=== PATIENT | male | born 1960 | race Caucasian/White ===

== ENCOUNTER → 2017-08-07 16:48 | Outpatient (CLI) | payer OTHER, SELFPAY ==
--- NOTE | 2017-08-07 16:55 | RAD_ITS ---
STUDY: X-RAY CHEST REASON FOR EXAM: Male, 57 years old. Pre-op TECHNIQUE: Frontal and lateral views of the chest. COMPARISON: 09/05/2016. FINDINGS: There is hyperinflation of the lungs consistent with chronic obstructive lung disease (COPD). No infiltrates or effusions. There is no demonstrated pleural abnormality. Normal size heart. Normal mediastinum and chandler. Normal visualized pulmonary arteries. Normal visualized aortic arch and descending thoracic aorta. There are diffuse degenerative changes of the visualized thoracic spine. Normal visualized ribs, clavicles, and shoulders. There is no demonstrated abnormality of the visualized soft tissue structures of the upper abdomen. RAD/Chest PA and Lateral IMPRESSION: There are findings consistent with COPD. There is no evidence of acute chest disease. Electronically Signed: Raza Huerta MD at 19:43 EDT , Service support ,
--- NOTE | 2017-08-07 17:14 | EKG12_ITS ---
Test Reason : PRE-OP Blood Pressure : / mmHG Vent. Rate : 058 BPM Atrial Rate : 058 BPM P-R Int : 146 ms QRS Dur : 102 ms QT Int : 418 ms P-R-T Axes : 051 057 075 degrees QTc Int : 410 ms Sinus bradycardia Otherwise normal ECG Confirmed by JOHANNY CONWAY, ANUP ([id number]), communications editor DORCAS MEHTA ([id number]) on 08/10/2017 1:17:58 PM Referred By: Duy Mehta Confirmed By:ANUP ORLANDO MD
== END ==
PROVIDERS: Family Provider Internal Medicine; PCP Internal Medicine; Visit Provider Orthopaedic Surgery
DX: Z01.810 Encounter for preprocedural cardiovascular examination (principal); Z01.811 Encounter for preprocedural respiratory examination
CPT/HCPCS: 71046; 93005

== ENCOUNTER → 2017-08-24 17:22 | Outpatient (CLI) | payer OTHER, SELFPAY ==
--- NOTE | 2017-08-24 17:27 | CT_ITS ---
STUDY: CT SCAN LOWER EXTREMITY LEFT REASON FOR EXAM: Male, 57 years old. Osteoarthritis of the left knee. Conformis protocol. RADIATION DOSAGE (If Supplied By Facility): CTDIvol = ( 19.20 ) mGy, DLP = ( 886.87 ) mGycm. Individualized dose optimization techniques were used for this CT.? TECHNIQUE: Multiple axial tomographic images of the left hip joint, left knee joint and left ankle joint were obtained. Coronal and sagittal reconstruction was performed. COMPARISON: None. FINDINGS: Left hip joint: There is evidence of prior nailing of the left femoral neck. No significant osteoarthritis is seen. Left knee: Medial compartment: The medial femoral condyle shows a mild degree of degenerative spurring. Moderate degree of posterior medial femoral condyle spurring. There is a mild degree of joint space narrowing. Mild degree of spur formation along the medial tibial plateau. Lateral compartment: Moderate-sized degenerative spurring along the lateral femoral condyle. Moderate moderate degree of degenerative spurring along the lateral tibial plateau with subchondral sclerosis and small cyst formation. Degree of posterior lateral condyle degenerative spurring. Mild degree of joint space narrowing. Patellofemoral joint: Moderate degree of joint space narrowing. Marked degree of degenerative spurring along the anterior portion of the distal femur as well as degenerative spurring along the posterior aspect of the superior and inferior aspects of the patella. Small joint effusion. Left ankle: No significant abnormality is seen. CT/Extremity Lower without Contra IMPRESSION: Multiple findings as described above. Electronically Signed: Nazario Villanueva MD at 13:22 EDT Tel [phone], Service support ,
== END ==
PROVIDERS: Family Provider Internal Medicine; PCP Internal Medicine; Visit Provider Orthopaedic Surgery
DX: M17.12 Unilateral primary osteoarthritis, left knee (principal); M25.562 Pain in left knee
CPT/HCPCS: 73700

== ENCOUNTER 2020-09-13 09:07 | Emergency (ER) | payer OTHER, SELFPAY ==
[2020-09-13 09:08] VITALS: BP 128/77; PULSE 58; RESP 16; TEMP 36.4; O2SAT 98; BMI 23.7
--- NOTE | 2020-09-13 09:43 | EDS_ITS ---
HPI History of Present Illness Chief Complaint: Upper Extremity Injury PFSH PFSH Home Medications hydrocodone-acetaminophen 1 tab PO Q6H PRN PRN 3 Days #12 tablet 09/13/20 [Rx Last Taken Unknown] Allergy/AdvReac Type Severity Reaction Status Date / Time No Known Allergies Allergy Verified 09/13/20 09:10 Social History Smoking Status: Never smoker ROS ROS ED Constitutional Constitutional ED: Denies chills, fever(s) or sweats Eyes Eyes: Denies blurry vision or change in vision ENT ENT ED: Denies ear pain, rhinorrhea or sore throat Cardiovascular Cardiovascular: Denies chest pain, palpitations or racing heartbeat Respiratory/Chest Respiratory/Chest: Denies cough, dyspnea or sputum Gastrointestinal Gastrointestinal: Denies abdominal pain, constipation, diarrhea or vomiting Genitourinary Genitourinary ED: Denies dysuria, hematuria or urinary frequency Musculoskeletal Musculoskeletal: Denies arthralgias, myalgias or neck pain Integumentary Denies abscess, Abrasions or rash Neurologic Neurologic: Reports paresthesias and other Details: Intermittent left hand numbness and tingling. Worse with laying flat on his back. ; Denies headache(s) or weakness Psychiatric Psychiatric: Denies anxiety, depression, suicidal ideation or suicidal thoughts Endocrine Endocrinology: Denies polydipsia or polyuria EXAM Physical Exam Const Vital Signs: 09/13/20 09:08 Temperature 97.6 F L Temperature Source Temporal Pulse Rate 58 L Respiratory Rate 16 Blood Pressure 128/77 H Blood Pressure Mean 94 Pulse Ox 98 Oxygen Delivery Method Room Air General Appearance ED: Negative for pallor HEENT Reports normocephalic, head/scalp atraumatic and moist mucous membranes Eyes PERRL and EOMs intact bilaterally Neck full ROM, no lymphadenopathy and supple General: Negative for tenderness Chest Wall inspection of chest normal and palpation of chest normal Resp normal respiratory effort and clear to auscultation bilaterally Auscultation: Negative for rales, rhonchi or wheezes Cardio regular rate and regular rhythm GI normal to inspection, nondistended, normoactive bowel sounds and non-distended Auscultation: normoactive bowel sounds Palpation: soft Narrative: Deferred Back/Spine no CVA tenderness General Back: Negative for CVA tenderness Cervical Spine: Negative for cervical spine tenderness Extremity normal to inspection General Extremety ED: Yes edema and tenderness General Extremity: edema Right Upper Extremity: shoulder joint Shoulder Joint Exam - Right: inspection (Normal), palpation (No tenderness to palpation) and ROM (Full range of motion in flexion, extension, abduction, abduction) Left Upper Extremity: hand and digits hand special tests (Left hand is full range of motion. No tenderness to palpation. Negative Tinel sign. Negative Otilia test. Normal Reynaldo's test. Brisk cap refill to all 5 fingers on the left hand.) Neuro oriented x3 and CN's II-XII intact bilaterally Neuro Narrative: Mild diffuse subjective decreased sensation on the left hand. Sensorium / Orientation: alert Motor Exam: strength 5/5 throughout Psych mental status grossly normal Attitude: No agitated Skin no rashes or lesions noted and no wounds General Skin Exam: Negative for jaundice or pallor Lesions: no lesions Rashes: no rashes Trauma: Negative for abrasion or laceration MDM MDM MDM Narrative Medical decision making narrative: Patient presenting with positional pain in the left wrist and hand. He states this has been going on for a couple of days. He states that when he lies on his back he gets numbness and tingling in his left hand. He denies any neck or upper arm pain. Patient's examination shows a negative Tinel's sign and a negative Otilia's test. I am unable to reproduce his pain. His Reynaldo's test is normal. He has brisk cap refill to all 5 fingers on the left hand. 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 I did discuss the patient with his PCP who did agree. Patient will be placed on a burst of prednisone for a few days. He is to follow-up with his PCP to ensure resolution. If he has any new or worsening symptoms of concern he is to return to the ER. I do not believe he is having any kind of stroke or TIA. He has no risk factors for this. Lab Data Attestation: I reviewed the patient's lab results. Discharge Plan Triage Chief Complaint: Upper Extremity Injury ED Provider: Alex Mishra Dx/Rx/DC Orders Instructions: Hand and Wrist Exercises: Wrist Flexion Prescriptions: New hydrocodone-acetaminophen 5-325 mg tablet 1 tab PO Q6H PRN PRN (Reason: Pain) 3 Days Qty: 12 RF: 0 Primary Care Provider: Curtis Orta Referrals: Curtis Orta MD [Primary Care Provider] - Disposition Disposition: Home, self care
[2020-09-13] MEDS: predniSONE 20 MG Tablet 60 MG PO (11:51)
[2020-09-13] MEDS: HYDROcodone Bitartrate/Apap 5/325 Tablet PO (11:51)
[2020-09-13 11:54] VITALS: RESP 16
== END 2020-09-13 11:55 | disposition home or self-care (01) ==
PROVIDERS: Emergency Provider Student in an Organized Health Care Education/Training Program; PCP Internal Medicine
DX: S49.92XA Unspecified injury of left shoulder and upper arm, initial encounter (principal); R20.2 Paresthesia of skin; R20.0 Anesthesia of skin; X58.XXXA Exposure to other specified factors, initial encounter; Y93.9 Activity, unspecified; Y92.9 Unspecified place or not applicable; Y99.9 Unspecified external cause status
CPT/HCPCS: 99283

== ENCOUNTER → 2021-11-15 | Outpatient (CLI) | payer OTHER, SELFPAY ==
--- NOTE | 2021-11-15 16:05 | CT_ITS ---
STUDY: CT LEFT SHOULDER REASON FOR EXAM: Male, 61 years old. History: OSTEOARTHRITIS History: OSTEOARTHRITIS RADIATION DOSAGE (If Supplied By Facility): CTDIvol = ( 23.74 ) mGy, DLP = ( 536.64 ) mGycm TECHNIQUE: The patient was scanned in a multi detector CT scanner. High resolution transaxial imaging was performed without the administration of intravenous contrast material. Sagittal and coronal images were reconstructed. Individualized dose optimization techniques were used for this CT. COMPARISON: None. FINDINGS: Normal glenohumeral articulation. Normal glenoid rim, neck and visualized scapula. Normal humeral head, neck and tuberosities. Normal coracoid process. Normal visualized lateral clavicle. Normal acromioclavicular articulation. There is a Type II morphology (curved), with a neutral orientation. Normal visualized muscles and soft tissue structures. CT/Extremity Upper without Contra IMPRESSION: There are no acute findings. Electronically Signed: Denny Wilcox MD at 18:41 EDT ,
== END | disposition home or self-care (01) ==
PROVIDERS: PCP Internal Medicine; Referring Provider Student in an Organized Health Care Education/Training Program; Visit Provider Student in an Organized Health Care Education/Training Program
DX: M19.012 Primary osteoarthritis, left shoulder (principal); M19.032 Primary osteoarthritis, left wrist
CPT/HCPCS: 73200

== ENCOUNTER 2021-12-12 07:30 | Day surgery (SDC) | payer OTHER, SELFPAY ==
[2021-11-30 09:48] LABS: Anion Gap 6 (5-15); BUN 18 mg/dL (7-18); Calcium,Total 8.8 mg/dL (8.5-10.1); Chloride 109 mmol/L (98-107); Creatinine, Serum 1.06 mg/dL (0.70-1.30); EST Glomerular Filtration Rate 75 mL/min (>60); Est Glom Filt Rate - Afr Amer 91 mL/min (>60); Glucose 121 mg/dL (74-106); Potassium 3.7 mmol/L (3.5-5.1); Sodium Level 140 mmol/L (136-145)
[2021-11-30 09:56] LABS: Absolute Lymphocyte Count 1.21 X10^3/uL (0.83-4.51); Absolute Neutrophil Count 3.3 X10^3/uL (2.0-7.7); Basophil# 0.03 X10^3/uL; Basophil% 0.6 % (0-1); Eosinophil# 0.13 X10^3/uL; Eosinophils% 2.5 % (0-5); Hematocrit 40.4 % (40-54); Hemoglobin 13.6 g/dL (13.0-16.5); Lymphocyte # 1.21 X10^3/ul (0.83-4.51); Mean Corp Hgb Conc 33.7 g/dL (32-36); Mean Corpuscular Hgb 30.8 pg (27.0-32.0); Mean Corpuscular Volume 91.6 fL (80-94); Mean Platelet Vol. 8.9 fl (6.2-12.0); Monocyte# 0.56 X10^3/uL; Monocyte% 10.6 % (0-10); NRBC Flagged by Analyzer 0 % (0-5); Neutrophil # 3.31 X10^3/uL (2.7-7.7); Neutrophil % 62.7 % (47-70); Platelet Count 392 K/mm3 (150-450); RBC Distribution Width CV 12.8 % (11.6-14.6); Red Blood Count 4.41 M/mm3 (4.6-6.2); White Blood Count 5.3 K/mm3 (4.4-11.0)
[2021-11-30 10:01] LABS: Magnesium 2.1 mg/dL (1.6-2.6)
[2021-12-12] VITALS (7 sets, daily range): BP systolic 111–130; BP diastolic 67–95; PULSE 53–68; RESP 16–18; TEMP 36.1–36.6; O2SAT 98–100; BMI 23.6
[2021-12-12] MEDS: Lactated Ringers 1,000 ML 999 ML IV ×2 (08:25→13:45)
[2021-12-12] MEDS: Gabapentin 600 MG Tablet PO (08:37)
[2021-12-12] MEDS: Acetaminophen 500 MG Tablet 1000 MG PO ×2 (08:37→14:55)
[2021-12-12] MEDS: Celecoxib 200 MG Capsule 400 MG PO (08:38)
[2021-12-12 09:20] LABS: Bedside Glucose 94 mg/dL (74-106)
[2021-12-12] MEDS: Lactated Ringers 1,000 ML 75 ML IV (09:35)
--- NOTE | 2021-12-12 10:00 | SHO_PTH ---
PATIENT: TANVIR DELUCA LOC: [facility] [place] U#:[id number] AGE/SX: 61/M ROOM: RE12/12/[address]: Dr. Chase Lyn DO : 1960 BED: DIS: 12/12/2021 SPEC #: [id number] RECD: 12/12/21 14:54 STATUS: NOEL REQ #: [id number] JANICE: 12/12/21 10:[address]: Chase Lyn DEPT: SURGICAL PATHOLOGY RECD BY: Bree Jaime ENTERED: 12/13/21 08:25 SP TYPE: HUMERUS OTHR DR: Dr. Curtis Orta MD Tissues: Humerus, NOS Procedures: Decalcification bone/plaque Surgery Specimen Level IV HEADER OPERATION: ERAS, total shoulder replacement, reverse PRE-OP DIAGNOSIS: Osteoarthritis, tear of rotator cuff TISSUE SUBMITTED: Left humeral head MICROSCOPIC DIAGNOSIS Left humeral head, total shoulder replacement/resection: Focal minimal changes suggestive of osteoarthritis. SJ:nadira 12/18/2021 COMMENT Case has been reviewed in consultation with Dr. Eddy who concurs with the above diagnosis. IDC:AM MICROSCOPIC DESCRIPTION Slides are reviewed. GROSS DESCRIPTION Received in fixative is one container labeled with the patient's name and designated left humeral. The specimen consists of a discoid fragment of gamble bone measuring 5.2 x 4 x 2.2 cm. The articular surface displays an irregular area of cartilage disruption measuring 3.5 x 3 cm. Distinct erosion deep to bone surface is not identified. Hogshead Liner sections are submitted in one cassette after decalcification. / AM:nadira 12/15/2021 TC:5 CPT: 05113, 20192
[2021-12-12] MEDS: Cefazolin 2 GM in 0.9% Normal Saline 100 ML IV (10:54)
[2021-12-12] MEDS: TXA 1000mg in NS100 100ml (IVPB at Incision) 660 MG IV (11:09)
[2021-12-12] MEDS: TXA 1000mg in NS100 100ml (IVPB at Closure) 660 MG IV (13:05)
--- NOTE | 2021-12-12 13:52 | RAD_ITS ---
INDICATION: post op -- AP and Lateral X-Ray of operative shoulder in PACU EXAMINATION/TECHNIQUE: X-RAY - LEFT XR Shoulder Min 2 Views 2 VIEWS COMPARISON: 08/07/2017. FINDINGS: Unremarkable left shoulder prosthesis. No abnormal density visualized in the soft tissues. Soft tissue prominence visualized and is visualized overlying the shoulder consistent with postoperative changes. No evidence of cortical irregularity or lucency to suggest a fracture. No evidence of lytic or sclerotic bone lesion is seen. RAD/Shoulder min 2 Views IMPRESSION: Unremarkable alignment of the left shoulder prosthesis. Electronically Signed: Juan C Marinelli MD at 14:17 EDT ,
[2021-12-12] MEDS: Lactated Ringers 1,000 ML 125 ML IV (15:21)
--- NOTE | 2021-12-12 18:44 | PCM.OPRPT ---
Report of Operation Date of Procedure: 12/12/21 Description of Surgical Findings:: Preoperative diagnosis: Left shoulder rotator cuff arthropathy Postoperative diagnosis: Left shoulder rotator cuff arthropathy Procedure: Left reverse total shoulder arthroplasty Surgeon: Chase Lyn DO It Support Specialist: Daisy Valentine PA-C Anesthesia: General endotracheal Anesthesiologist: Dr. Mejia Complications: None apparent Drains: None Estimated blood loss: 175 cc Urinary output: None recorded IV fluids: 1300 cc crystalloid Specimens: None Surgical implants: Tornier Aequalis PerFORM+ reversed std baseplate 29 mm diameter, standard glenosphere cobalt chrome 39 mm diameter, flex shoulder system reverse tray eccentric high thickness +0 mm, standard PTC humeral stem Aequalis Ascend Flex 132.5 degree angle size 4B, reverse insert thickness +6 mm ultrahigh molecular weight polyethylene. 35 mm central screw. Peripheral screws 34 mm x 2. Surgical indications: This is a 61-year-old male with left shoulder pain and weakness with overhead motion. He did have worsening symptoms over the last several months. X-rays revealed rotator cuff significant superior escape with pseudoparalysis of the left upper extremity due to massive rotator cuff tear as seen on MRI. He had significant retraction and fatty infiltration of his rotator cuff. I discussed surgical options including subacromial balloon, superior capsular reconstruction, and reverse shoulder arthroplasty as options for his massive rotator cuff tear with fatty infiltration. We discussed the risk, benefits, alternatives to all the procedures in the office. He was to undergo a single surgery and settled upon a left reverse shoulder arthroplasty after weighing his options. We obtained a preoperative CT scan for planning. The risks, benefits, alternatives the procedure was reviewed with the patient and he agreed to proceed. Risks included but were not limited to bleeding, infection, instability, loss of life or limb, risk of anesthesia, neurovascular injury, persistent pain, stiffness, prolonged immobilization, need for additional surgery, loosening of orthopedic hardware. He expressed understanding and wished to proceed with surgery. Surgical details: Patient arrived to [facility] morning of the procedure and was greeted by the same day surgery staff. Prior to his procedure, I greeted the patient in the preoperative holding area I identified the patient by name, record number, and date of . Informed consent was confirmed. The operative extremity was marked. All questions were answered to patient satisfaction. Patient was also seen by anesthesia staff. Interscalene block was administered prior to procedure for postoperative analgesia. At time of his procedure, patient was brought to the operative suite and positioned supine on a standard table with a beachchair attachment. General anesthesia was induced after all bony prominences were well-padded. Endotracheal tube was placed. After adequate anesthesia and securing the tube, we prepared the patient to be positioned in the beachchair position. A well-padded head correction officer was applied. The nonoperative extremity was placed in a well arm moreira. He was then brought into the beachchair position after we confirmed an appropriate blood pressure. We then spun the bed 45 degrees. The operative extremity was then prepared. Then the butterfly wing of the bed was removed and a well-padded torso strap was applied to secure the patient to the bed. The operative extremity was now free. We then prepped and draped the left upper extremity in normal, sterile orthopedic fashion. We then performed a timeout with all parties in attendance in agreement with the side, site, and operation be performed. 2 g Ancef was administered prior to incision by anesthesia staff, as well as 1 g TXA IV. No concerns were voiced and we elected to proceed. I first marked a standard deltopectoral incision just lateral to the coracoid process in line with the long axis of the humerus. Skin was sharply incised with 10 blade scalpel. I then dissected bluntly through the subcutaneous layers and found the fat stripe between the deltoid and pectoralis major. The cephalic vein was then identified and protected. It was retracted laterally with the deltoid. I then bluntly dissected underneath the deltoid with a Garrido elevator. Cara retractor was placed. The upper 1 cm of the pectoralis major was released. I then identified the long head of the biceps tendon in the intertubercular groove. This was tenodesed in situ with #2 FiberWire. I then amputated the biceps proximal to the tenodesis site and followed the tendon to the supraglenoid tubercle where it was amputated. This identified the lesser and greater tuberosities. The supraspinatus was completely torn and retracted with an exposed greater tuberosity. I then performed a subscapularis peel while rotating the humerus externally. I tagged the subscapularis for possible repair later with a tagging suture. I then made a anatomic neck cut of the cartilaginous surface of the humeral head. I placed a canal finding reamer at the superior apex of the humeral head. I then sequentially broached to a size 4 broach with excellent rotational control. I placed a humeral protector plate and subluxed the humeral head posteriorly. I then placed retractors around the posterior and anterior glenoid to expose the glenoid. Glenoid labrum was removed with Bovie cautery protecting the axillary nerve, which was in close proximity to the glenoid neck. We then used the custom guide from [employer] to position our centering pin. Guide was removed and pin was analyzed and compared to preoperative planning. It appeared to be in appropriate position. This was reamed about 2 mm deep. We then remove the reamer and used the cannulated drill for the central 35 mm screw. Pin was removed. Post and baseplate was assembled on the back table. We then inserted the baseplate and central screw the assembled baseplate to an appropriate depth. A [place] was used to confirm depth. Cortical screws then were placed in the most superior and inferior holes with good purchase. The baseplate had excellent purchase and the entire scapula would rotate with rotation of the baseplate. We then impacted the 39 mm glenosphere with a standard eccentricity. Locking screw was then placed in the centering hole of the glenosphere with excellent purchase. We then removed retractors and turned our attention back to the humerus. I placed a standard +0 tray and 6 mm polyethylene insert. I then reduced the shoulder. There was excellent range of motion and stability in all planes of motion. We selected this as our final size. We removed trials from the humerus after final dislocation. I copiously irrigated the canal. Broach was placed on hand and then impacted to an appropriate depth. Final +6 mm polyethylene insert was placed. Final reduction was then performed. I then copiously irrigated the wound with irrisept and normal saline solution. Hemostasis was excellent. The axillary nerve was visualized and appeared to be intact. The subscapularis was then identified with a tagging suture. Repair would have been likely under undue tension and likely failed. I elected to not perform a subscapularis repair. We then copiously irrigated the wound with normal saline solution. We reapproximated the interval with 0 Vicryl suture. Subcutaneous layers were reapproximated with 2 -0 Vicryl suture. Skin was finally running V-Loc 3-0 Monocryl suture and Dermabond. A sterile silver Mepilex dressing was applied. Patient was then placed in a simple sling. Patient tolerated procedure well without complication. He was positioned back in the supine position extubated in the operative suite. He was transferred to the rsummit and subsequently to PACU in stable condition. Need for skilled reference library assistant: Daisy Valentine PA-C was critical to the outcome of the case. During the course of the procedure the physician reference library assistant played a vital role. Her intimate knowledge of my steps in the procedure aided in safe and expedient completion of the procedure. The PA played a vital role in positioning particularly in obtaining the appropriate positioning. The PA was also vital in the retraction of soft tissues during the exposure and protecting vital structures. The PA was also vital and protecting soft tissues during times of bony cuts. She also played a vital role in closure with my direct supervision. The PA was also important during reduction and dislocation of the joint and trials intraoperatively. Intraoperative medications: 2 g Ancef IV, 1 g TXA IV x2 Post Operative Plan: Weightbearing: Nonweightbearing left upper extremity, okay for pendulums. Range of motion of wrist elbow and hand as tolerated. Antibiotics: 2 g Ancef IV prior to incision DVT Prophylaxis: Aspirin 81 mg twice daily starting tomorrow Mancini: None Dressing: Maintain silver dressing x5 days. Okay to shower dressing on started on day 4 X-Rays: 2 weeks postop in the office Pain Medication: Oxycodone Rx provided in the office at time of preop visit Follow-up: 2 weeks post-operatively with me in the office
== END 2021-12-12 15:52 | disposition home or self-care (01) ==
LOC: SDC 07:33 → AC 07:33
PROVIDERS: Anesthesiology; PCP Internal Medicine; Referring Provider Student in an Organized Health Care Education/Training Program; Visit Provider Student in an Organized Health Care Education/Training Program
PROC: (CPT 23472; principal; 2021-12-12 09:30)
DX: M75.102 Unspecified rotator cuff tear or rupture of left shoulder, not specified as traumatic (principal); E11.9 Type 2 diabetes mellitus without complications; I10 Essential (primary) hypertension; I25.10 Atherosclerotic heart disease of native coronary artery without angina pectoris; M19.90 Unspecified osteoarthritis, unspecified site; Z79.82 Long term (current) use of aspirin; Z79.52 Long term (current) use of systemic steroids; Z79.899 Other long term (current) drug therapy; Z87.891 Personal history of nicotine dependence; Z95.5 Presence of coronary angioplasty implant and graft
CPT/HCPCS: 23472; 64415; 01638; 36415; 73030; 80048; 82962; 83735; 85025; 87081; 88305; 88311; C1776; J7120; J2405; J3475

== ENCOUNTER 2022-03-24 15:16 | Emergency (ER) | payer OTHER, SELFPAY ==
[2022-03-24] VITALS (8 sets, daily range): BP systolic 110–149; BP diastolic 46–80; PULSE 65–110; RESP 14–25; TEMP 36.8; O2SAT 95–100; BMI 23.1
--- NOTE | 2022-03-24 15:46 | EX.ED.GENINJ ---
HPI History of Present Illness Chief Complaint: Disclocation Narrative Narrative: Patient presents with left shoulder pain, he had a shoulder replacement, he dislocated it 2 days ago. Reduction was attempted by orthopedics outpatient. PFSH PFSH Medical History Arthritis Back pain Former smoker History of diverticulitis Hoarseness Hx of developmental dysplasia of the hip Leg cramps Wears glasses Home Medications acetaminophen 325 mg tablet (Tylenol) 650 mg PO Q4H PRN Pain 11/28/21 [History Last Taken Unknown] oxycodone 5 mg tablet 5 mg PO Q6H PRN pain 7 days #28 tabs 03/24/22 [Rx Last Taken Unknown] tramadol 50 mg tablet 50 mg PO QHS 03/24/22 [History Last Taken Unknown] Allergy/AdvReac Type Severity Reaction Status Date / Time No Known Allergies Allergy Verified 03/24/22 15:20 Surgical History Hx of colonoscopy Hx of total knee arthroplasty Social History Smoking Status: Former smoker ROS ROS ED ROS Narrative Past medical history: Noncontributory Medications: Reviewed Social history: Noncontributory Review of systems: Musculoskeletal: Left shoulder pain Skin: No abrasions or lacerations Neurological: No weakness or paresthesias Hematologic: No easy bleeding or easy bruising EXAM Physical Exam Narrative Exam Narrative: Physical exam General: Patient appears uncomfortable Head: Normocephalic, Atraumatic Neck: No C-spine tenderness Cardiovascular: Normal distal pulses Back: Nontender, Normal Inspection. Extremities: Inferior deformity of the left shoulder neurovascularly intact distally Skin: No abrasions, no lacerations Neurological: Normal strength and sensation Const Vital Signs: 03/24/22 15:17 03/24/22 16:59 03/24/22 17:01 Temperature 98.2 F 98.2 F Temperature Source Temporal Pulse Rate 110 H 72 Pulse Rate [1 (Initial Baseline)] 85 Pulse Rate [2] 75 Pulse Rate [3] 70 Pulse Rate [4] 71 Pulse Rate [5] 68 Respiratory Rate 18 24 H Respiratory Rate [1 (Initial Baseline)] 24 H Respiratory Rate [2] 25 H Respiratory Rate [3] 18 Respiratory Rate [4] 22 H Respiratory Rate [5] 17 Blood Pressure 111/46 L 131/68 H Blood Pressure [1 (Initial Baseline)] 131/68 H Blood Pressure [2] 149/78 H Blood Pressure [3] 119/66 Blood Pressure [4] 125/70 H Blood Pressure [5] 110/77 Blood Pressure Mean 67 Pulse Ox 98 99 Oxygen Delivery Method Room Air Room Air Oxygen Delivery Method [1 (Initial Baseline)] Room Air Oxygen Delivery Method [2] Nasal Cannula Oxygen Delivery Method [3] Nasal Cannula Oxygen Delivery Method [4] Nasal Cannula Oxygen Delivery Method [5] Room Air Oxygen Flow Rate (L/min) [2] 2 Oxygen Flow Rate (L/min) [3] 5 Oxygen Flow Rate (L/min) [4] 3 03/24/22 17:11 03/24/22 17:13 03/24/22 17:16 Temperature Temperature Source Pulse Rate 77 Pulse Rate [1 (Initial Baseline)] Pulse Rate [2] Pulse Rate [3] Pulse Rate [4] Pulse Rate [5] Respiratory Rate 14 Respiratory Rate [1 (Initial Baseline)] Respiratory Rate [2] Respiratory Rate [3] Respiratory Rate [4] Respiratory Rate [5] Blood Pressure 127/78 H Blood Pressure [1 (Initial Baseline)] Blood Pressure [2] Blood Pressure [3] Blood Pressure [4] Blood Pressure [5] Blood Pressure Mean 94 Pulse Ox 98 Oxygen Delivery Method Room Air Room Air Room Air Oxygen Delivery Method [1 (Initial Baseline)] Oxygen Delivery Method [2] Oxygen Delivery Method [3] Oxygen Delivery Method [4] Oxygen Delivery Method [5] Oxygen Flow Rate (L/min) [2] Oxygen Flow Rate (L/min) [3] Oxygen Flow Rate (L/min) [4] 03/24/22 17:21 Temperature Temperature Source Pulse Rate Pulse Rate [1 (Initial Baseline)] Pulse Rate [2] Pulse Rate [3] Pulse Rate [4] Pulse Rate [5] Respiratory Rate Respiratory Rate [1 (Initial Baseline)] Respiratory Rate [2] Respiratory Rate [3] Respiratory Rate [4] Respiratory Rate [5] Blood Pressure Blood Pressure [1 (Initial Baseline)] Blood Pressure [2] Blood Pressure [3] Blood Pressure [4] Blood Pressure [5] Blood Pressure Mean Pulse Ox Oxygen Delivery Method Room Air Oxygen Delivery Method [1 (Initial Baseline)] Oxygen Delivery Method [2] Oxygen Delivery Method [3] Oxygen Delivery Method [4] Oxygen Delivery Method [5] Oxygen Flow Rate (L/min) [2] Oxygen Flow Rate (L/min) [3] Oxygen Flow Rate (L/min) [4] PROC Procedures Procedural Sedation 1 (Initial Baseline): Consent Signed: Yes Any Problems With Anesthesia: No You/Your family experience fever (hyperthermia) w/anesthesia: No Sedation medication: Propofol Dose: 100 Route: IV Mallampati Score: Class II ASA Classification: II Comment:: I was asked by orthopedics to do procedural sedation so they can reduce the shoulder. See above a total of 100 mg of propofol were given. Adequate sedation was achieved and orthopedics reduced the patient's shoulder. Post reduction x-ray is showing a normal shoulder MDM MDM Radiography Diagnostic Testing: Clinical Impression(s) from Imaging Studies Shoulder X-Ray 03/24/22 16:00 IMPRESSION: Dislocation of the left total shoulder arthroplasty. Electronically Signed: Jethro Shea DO at 16:17 EST Reading Location ID and State: [facility] Tel [phone], Service support , Shoulder X-Ray 03/24/22 17:20 IMPRESSION: Successful reduction of the shoulder dislocation when compared to the earlier study. Electronically Signed: Jethro Shea DO at 17:40 EST Reading Location ID and State: [facility] Tel [phone], Service support , Shoulder x-ray read by me shows dislocation of the left shoulder Second x-ray read by me and radiologist as reduced. Treatment and Re-Evaluation Narrative: Shoulder was was reduced by orthopedics while I did procedural sedation this was requested by them. Patient is now reduced and will be discharged in stable condition Discharge Plan Triage Chief Complaint: Disclocation ED Provider: Maikel Ruiz Dx/Rx/DC Orders Clinical Impression: Dislocation of left shoulder joint, Acute shoulder pain Instructions: ED Dislocation: Shoulder (Reduced) Prescriptions: New oxycodone 5 mg tablet 5 mg PO Q6H PRN (Reason: pain) 7 Days Qty: 28 0RF No Action acetaminophen [Tylenol] 325 mg Tablet 650 mg PO Q4H PRN (Reason: Pain) tramadol 50 mg tablet 50 mg PO QHS Label Comments: TAKE 1 TO 2 TABLETS BY MOUTH EVERY 6 HOURS NEEDED FOR PAIN Primary Care Provider: Curtis Orta Referrals: Chase Lyn DO [Med Staff - Active Staff] - 04/07/22 Curtis Orta MD [Primary Care Provider] - Disposition Disposition: Home, Self Care
[2022-03-24] MEDS: Ondansetron 4 MG/2 ML Vial IV (15:47)
[2022-03-24] MEDS: Morphine 4 MG/ML Syringe IV (15:47)
--- NOTE | 2022-03-24 16:00 | RAD_ITS ---
STUDY: X-RAY - LEFT SHOULDER REASON FOR EXAM: Male, 62 years old. This location. TECHNIQUE: 2 view(s) of the shoulder. COMPARISON: December 13, 1999 FINDINGS: The study demonstrates a superolateral posterior dislocation of the total shoulder arthroplasty noted on the previous study. There is no visualized fracture. There is no loosening of the prosthetic components from the underlying bone. Soft tissues appear normal. RAD/Shoulder min 2 Views IMPRESSION: Dislocation of the left total shoulder arthroplasty. Electronically Signed: Jethro Shea DO at 16:17 EST ,
[2022-03-24] MEDS: Propofol 200 MG/20 ML Vial 100 MG IV BOLUS (17:13)
--- NOTE | 2022-03-24 17:20 | RAD_ITS ---
STUDY: X-RAY - LEFT SHOULDER REASON FOR EXAM: Male, 62 years old. Post reduction. TECHNIQUE: 2 view(s) of the shoulder. COMPARISON: Left shoulder, March 24, 2022 (1602 hours). FINDINGS: Hindu of the normal alignment of the left artificial shoulder when compared to prior study. Normal acromioclavicular joint. Normal acromion. There is no acute fracture, dislocation or destructive osseous pathology. The soft tissue structures are unremarkable. Normal visualized pulmonary apex. RAD/Shoulder min 2 Views IMPRESSION: Successful reduction of the shoulder dislocation when compared to the earlier study. Electronically Signed: Jethro Shea DO at 17:40 EST ,
--- NOTE | 2022-03-24 17:38 | CON.PCM.OR_ITS ---
HPI Consult Data Date of Consult: 03/24/22 HPI Narrative Reason for Consultation: Left reverse shoulder arthroplasty dislocation HPI Narrative: TANVIR DELUCA, is a 62 M who presented to my office earlier today due to worsening left shoulder pain over the weekend. He underwent uncomplicated left reverse shoulder arthroplasty 12/12/2021. His shoulder range of motion and strength has been improving steadily. He stated he felt some pops in his left shoulder at therapy 5 days ago. He states he was moving a box over the weekend noted worsening pain in his left shoulder. He denied any significant injury otherwise. Denies any numbness or tingling. Denies fevers, chills, nausea vomiting, chest pain or shortness of breath. X-rays obtained in my office revealed a posterior superior dislocation of the humeral prosthesis. I attempted closed reduction under shoulder intra-articular block in the office. Patient tolerated the procedure well but reduction was unsuccessful. I advised patient to go to the emergency room where I would attempt a closed reduction under conscious sedation. [facility] Medical History Arthritis Back pain Former smoker History of diverticulitis Hoarseness Hx of developmental dysplasia of the hip Leg cramps Wears glasses Home Medications acetaminophen 325 mg tablet (Tylenol) 650 mg PO Q4H PRN Pain 11/28/21 [History Last Taken Unknown] oxycodone 5 mg tablet 5 mg PO Q6H PRN pain 7 days #28 tabs 03/24/22 [Rx Last Taken Unknown] tramadol 50 mg tablet 50 mg PO QHS 03/24/22 [History Last Taken Unknown] Allergy/AdvReac Type Severity Reaction Status Date / Time No Known Allergies Allergy Verified 03/24/22 15:20 Surgical History Hx of colonoscopy Hx of total knee arthroplasty Social History Smoking Status: Former smoker ROS ROS Narrative 12 point review of systems obtained, negative unless otherwise noted in HPI. Vital Signs Vital Signs Vital Signs: 03/24/22 15:17 03/24/22 16:59 03/24/22 17:01 Temperature 98.2 F 98.2 F Temperature Source Temporal Pulse Rate 110 H 72 Pulse Rate [1 (Initial Baseline)] 85 Pulse Rate [2] 75 Pulse Rate [3] 70 Pulse Rate [4] 71 Pulse Rate [5] 68 Respiratory Rate 18 24 H Respiratory Rate [1 (Initial Baseline)] 24 H Respiratory Rate [2] 25 H Respiratory Rate [3] 18 Respiratory Rate [4] 22 H Respiratory Rate [5] 17 Blood Pressure 111/46 L 131/68 H Blood Pressure [1 (Initial Baseline)] 131/68 H Blood Pressure [2] 149/78 H Blood Pressure [3] 119/66 Blood Pressure [4] 125/70 H Blood Pressure [5] 110/77 Blood Pressure Mean 67 Pulse Ox 98 99 Oxygen Delivery Method Room Air Room Air Oxygen Delivery Method [1 (Initial Baseline)] Room Air Oxygen Delivery Method [2] Nasal Cannula Oxygen Delivery Method [3] Nasal Cannula Oxygen Delivery Method [4] Nasal Cannula Oxygen Delivery Method [5] Room Air Oxygen Flow Rate (L/min) [2] 2 Oxygen Flow Rate (L/min) [3] 5 Oxygen Flow Rate (L/min) [4] 3 03/24/22 17:11 03/24/22 17:13 03/24/22 17:16 Temperature Temperature Source Pulse Rate 77 Pulse Rate [1 (Initial Baseline)] Pulse Rate [2] Pulse Rate [3] Pulse Rate [4] Pulse Rate [5] Respiratory Rate 14 Respiratory Rate [1 (Initial Baseline)] Respiratory Rate [2] Respiratory Rate [3] Respiratory Rate [4] Respiratory Rate [5] Blood Pressure 127/78 H Blood Pressure [1 (Initial Baseline)] Blood Pressure [2] Blood Pressure [3] Blood Pressure [4] Blood Pressure [5] Blood Pressure Mean 94 Pulse Ox 98 Oxygen Delivery Method Room Air Room Air Room Air Oxygen Delivery Method [1 (Initial Baseline)] Oxygen Delivery Method [2] Oxygen Delivery Method [3] Oxygen Delivery Method [4] Oxygen Delivery Method [5] Oxygen Flow Rate (L/min) [2] Oxygen Flow Rate (L/min) [3] Oxygen Flow Rate (L/min) [4] 03/24/22 17:21 Temperature Temperature Source Pulse Rate Pulse Rate [1 (Initial Baseline)] Pulse Rate [2] Pulse Rate [3] Pulse Rate [4] Pulse Rate [5] Respiratory Rate Respiratory Rate [1 (Initial Baseline)] Respiratory Rate [2] Respiratory Rate [3] Respiratory Rate [4] Respiratory Rate [5] Blood Pressure Blood Pressure [1 (Initial Baseline)] Blood Pressure [2] Blood Pressure [3] Blood Pressure [4] Blood Pressure [5] Blood Pressure Mean Pulse Ox Oxygen Delivery Method Room Air Oxygen Delivery Method [1 (Initial Baseline)] Oxygen Delivery Method [2] Oxygen Delivery Method [3] Oxygen Delivery Method [4] Oxygen Delivery Method [5] Oxygen Flow Rate (L/min) [2] Oxygen Flow Rate (L/min) [3] Oxygen Flow Rate (L/min) [4] Weight Weight: 185 lb Body Mass Index (BMI) 23.1 Physical Exam Narrative General -A&Ox3, NAD, appears stated age. Vital signs stable, afebrile. Respiratory -normal work of breathing, no intercostal retractions. CV -pulses regular, brisk capillary refill ?4 limbs. Abdomen-soft, nontender, nondistended. No guarding, rigidity, rebound tenderness. Musculoskeletal/neurologic -full range of motion nontender throughout right upper extremity, bilateral lower extremities with full sensation and strength in all dermatomes and myotomes. No midline cervical tenderness. Left upper extremity-sensation intact throughout. Gross deformity noted left shoulder. Deltopectoral incision is well-healed without erythema or drainage. Diffusely tender about the left shoulder. Cardinal motions left hand are intact. Radial pulse 2+ brisk upper refill in the fingertips. Radiology Impression Shoulder X-Ray 03/24/22 16:00 IMPRESSION: Dislocation of the left total shoulder arthroplasty. Electronically Signed: Jethro Shea DO at 16:17 EST Reading Location ID and State: [address] [place] [address] Tel [phone], Service support , Assessment & Plan Assessment/Plan (1) Dislocation of left shoulder joint: PLAN: Left reverse shoulder arthroplasty dislocation -Recommended close reduction under conscious sedation. Procedure: Left reverse shoulder arthroplasty close reduction under conscious sedation Informed consent obtained. Risk, benefits, alternatives to the procedure reviewed with patient at length. A timeout was performed with all parties in attendance in agreement with the side, site, operation be performed. No concerns were voiced and elected proceed. Conscious sedation was administered by the ED physician with propofol. After adequate sedation, longitudinal traction was applied to the left arm. A palpable and audible clunk was appreciated. Range of motion flexion to 90 degrees was stable. Post reduction films revealed a well-positioned and well reduced left reverse shoulder arthroplasty. Patient was placed in a simple sli ng. Patient tolerated procedure well without complication. Follow-up in 2 weeks. Maintain sling remove only for hygiene. Pendulums only. Prescription for oxycodone sent to his pharmacy.
== END 2022-03-24 18:05 | disposition home or self-care (01) ==
PROVIDERS: Emergency Provider Emergency Medicine; PCP Internal Medicine; Visit Provider Emergency Medicine
DX: T84.028A Dislocation of other internal joint prosthesis, initial encounter (principal); S43.005A Unspecified dislocation of left shoulder joint, initial encounter; Y83.1 Surgical operation with implant of artificial internal device as the cause of abnormal reaction of the patient, or of later complication, without mention of misadventure at the time of the procedure; Z96.612 Presence of left artificial shoulder joint; Z87.891 Personal history of nicotine dependence
CPT/HCPCS: 23650; 73030; 96374; 96375; 99152; 99283; J7030; A4216; J2405

== ENCOUNTER 2022-04-24 08:37 | Day surgery (SDC) | payer OTHER, SELFPAY ==
[2022-04-12 09:40] LABS: Hematocrit 37.1 % (40-54); Hemoglobin 11.6 g/dL (13.0-16.5); Mean Corp Hgb Conc 31.3 g/dL (32-36); Mean Corpuscular Hgb 27.9 pg (27.0-32.0); Mean Corpuscular Volume 89.2 fL (80-94); Mean Platelet Vol. 8.5 fl (6.2-12.0); Platelet Count 497 K/mm3 (150-450); RBC Distribution Width CV 13.3 % (11.6-14.6); RBC Distribution Width SD 43.8 fl (35.1-43.9); Red Blood Count 4.16 M/mm3 (4.6-6.2); White Blood Count 6.7 K/mm3 (4.4-11.0)
[2022-04-12 09:59] LABS: Anion Gap 4 (5-15); BUN 11 mg/dL (7-18); BUN/Creat Ratio 9.8 RATIO (10-20); Calcium,Total 9.5 mg/dL (8.5-10.1); Chloride 109 mmol/L (98-107); Creatinine, Serum 1.12 mg/dL (0.70-1.30); EST Glomerular Filtration Rate 70 mL/min (>60); Est Glom Filt Rate - Afr Amer 85 mL/min (>60); Glucose 88 mg/dL (74-106); Potassium 3.9 mmol/L (3.5-5.1); Sodium Level 140 mmol/L (136-145)
[2022-04-24] VITALS (7 sets, daily range): BP systolic 105–122; BP diastolic 58–67; PULSE 59–76; RESP 16–17; TEMP 36.1–36.6; O2SAT 94–100; BMI 23.7
[2022-04-24] MEDS: Lactated Ringers 1,000 ML 15 ML IV (08:55)
[2022-04-24 09:26] LABS: Hematocrit 36.7 % (40-54); Hemoglobin 11.9 g/dL (13.0-16.5); Mean Corp Hgb Conc 32.4 g/dL (32-36); Mean Corpuscular Hgb 28.4 pg (27.0-32.0); Mean Corpuscular Volume 87.6 fL (80-94); Mean Platelet Vol. 8.5 fl (6.2-12.0); Platelet Count 450 K/mm3 (150-450); RBC Distribution Width CV 13.5 % (11.6-14.6); RBC Distribution Width SD 43.7 fl (35.1-43.9); Red Blood Count 4.19 M/mm3 (4.6-6.2); White Blood Count 6.2 K/mm3 (4.4-11.0)
[2022-04-24 09:41] LABS: Anion Gap 6 (5-15); BUN 15 mg/dL (7-18); BUN/Creat Ratio 15.4 RATIO (10-20); Calcium,Total 9.3 mg/dL (8.5-10.1); Chloride 106 mmol/L (98-107); Creatinine, Serum 0.97 mg/dL (0.70-1.30); EST Glomerular Filtration Rate 83 mL/min (>60); Est Glom Filt Rate - Afr Amer 100 mL/min (>60); Estimated Creatinine Clearance 91.95 ml/min; Glucose 96 mg/dL (74-106); Potassium 3.9 mmol/L (3.5-5.1); Sodium Level 140 mmol/L (136-145)
[2022-04-24] MEDS: Cefazolin 2 GM in 0.9% Normal Saline 100 ML IV (11:27)
[2022-04-24] MEDS: Lidocaine 2% /Epi 1:100 (20ml) 20 ML VIAL (12:01)
--- NOTE | 2022-04-24 12:33 | DCINST_ITS ---
Discharge Instructions Follow Up Care Test Results: Test results from this visit will be discussed in further detail at your follow- up appointment, if applicable. Discharge Plan Admission Primary Reason for Your Visit: Left cubital and carpal tunnel releases Attending Provider: Chase Lyn Primary Care Provider: Curtis Orta Instructions Additional Instructions / Restrictions: Follow preprinted instructions from your surgeons office Discharge Orders/Prescriptions Prescriptions: New oxycodone 5 mg tablet 5 mg PO Q6H PRN (Reason: pain) 7 Days Qty: 28 0RF No Action acetaminophen [Tylenol] 325 mg Tablet 650 mg PO Q4H PRN (Reason: Pain) tramadol 50 mg tablet 50 mg PO QHS Label Comments: TAKE 1 TO 2 TABLETS BY MOUTH EVERY 6 HOURS NEEDED FOR PAIN Vitamin B-12 50 mcg Tablet 50 mcg PO DAILY cholecalciferol (vitamin D3) [Vitamin D3] 25 mcg (1,000 unit) Capsule 25 mcg PO DAILY Referrals / Follow Up: Chase Lyn DO [Med Staff - Active Staff] - Curtis Orta MD [Primary Care Provider] - Disposition Disposition (needs filled in before D/C Order can be placed): Home, Self Care
--- NOTE | 2022-04-24 12:33 | PCM.OPRPT ---
Report of Operation Date of Procedure: 04/24/22 Description of Surgical Findings:: Preoperative diagnosis: 1. Left cubital Tunnel Syndrome 2. Left carpal tunnel syndrome Postoperative diagnosis: 1. Left cubital Tunnel Syndrome 2. Left carpal tunnel syndrome Procedure 1. Left ulnar nerve decompression at the elbow with subcutaneous anterior transposition 2. Left open carpal tunnel release Surgeon: Chase Lyn DO Phone Representative: SUDHEER Richardson Anesthesia: General LMA Anesthesiologist: Dr. Mejia Complications: None apparent Drains: None Estimated blood loss: 10 cc Urinary output: None measured IV fluids: Per anesthesia record Specimens: None Surgical implants: None Surgical indications: This is a 62-year-old male seen in the outpatient setting who had worsening paresthesias in his left hand following a left reverse shoulder arthroplasty performed on 12/12/2021. We attempted postoperative corticosteroids without relief. He had significant intrinsic muscle weakness of the left hand. Severe cubital tunnel syndrome was confirmed on EMG/NCV as well as a mild carpal tunnel syndrome.. Operative intervention in form of cubital tunnel release was offered to the left elbow and left open carpal tunnel release was recommended. There was no evidence of ulnar nerve instability on examination the office. We discussed potential anterior nerve transposition. The risks, benefits, alternatives to procedure were reviewed with patient at length in the outpatient setting and he agreed to proceed. Risks included but were not limited to bleeding, infection, loss of life or limb, risk of anesthesia, persistent paresthesias, neurovascular injury, persistent pain, need for additional surgery, stiffness, loss of hand function. Patient expressed understanding wish to proceed with surgery. Informed consent obtained in the office. Description of procedure: Patient was seen in preoperative holding area. Patient was identified by name, medical record number, date of . The operative extremity was marked with a surgical marker. We confirmed informed consent with the patient and all questions were answered to the patient's satisfaction. At time of his procedure, patient was brought to the operative suite and positioned supine a standard operating table. All bony prominences were well-padded. General anesthesia was induced and endotracheal tube placed. The operative upper extremity was then prepped for surgery by first applying a well-padded pneumatic tourniquet to the left upper arm. The hand table attached to the left side of the table. We spun the bed 90 degrees. The left upper extremity was then prepped and draped in normal, sterile orthopedic fashion. 2 g Ancef was administered prior to incision by anesthesia staff. We performed a timeout at this point confirming side, site, and operation to be performed. No concerns voiced and elected to proceed. I first exsanguinated the left upper extremity with an Esmarch bandage. Tourniquet was to inflated 250 mmHg remained up for 21 minutes. Esmarch was removed. A standard open carpal tunnel release incision was made in line with the fourth ray proximal to Lin's cardinal line and distal to the wrist crease. Full-thickness skin flaps were developed with a 15 blade scalpel down to the level of the palmar fascia. Heiss retractor was placed. Palmar fascia was split in line with the incision. Heiss retractor was placed deeper. Transverse carpal ligament was then identified and released in line with the incision. Distal extent of release was confirmed with identification of perivascular fat. Proximal release was confirmed as well as release of the distal 5 mm of antebrachial fascia. No aberrancies and median nerve were encountered. Wound was copiously irrigated with normal saline solution. Incision was closed with an interrupted horizontal mattress fashion with 4-0 nylon suture. I then turned my attention to the elbow. A standard curvilinear incision to the cubital tunnel was made approximately 8 cm in length centered over the elbow crease between the medial epicondyle and olecranon. Skin was sharply incised with a 15 blade scalpel. I bluntly dissected the subcutaneous field identifying the medial antebrachial cutaneous nerve which was protected throughout the course of the surgery. I bluntly dissected down to the level of the fascia. Flexor carpi ulnaris fascia as well as its 2 heads were identified. The ulnar nerve was then identified between the 2 heads of the FCU. I split the superficial fascia of the FCU heads down to level of the first motor branch. Deeper fascia was also released in similar fashion. I traced the nerve proximally. There was significant compression noted at the FCU as well as at Jacobo's fascia. Jacobo's fascia was released with Littler scissors. I traced the nerve proximally where it exited the posterior compartment. The arcade of [place] appeared to be contributing to compression and was released sharply. A 5 cm x 1 cm slip of the medial portion of the intermuscular septum was also excised. I then brought the elbow through range of motion. Subluxation of the nerve was noted anteriorly with elbow flexion. I then carefully elevated the nerve bluntly utilizing a vessel loop to perform a transposition. I elevated a 5 cm flap of flexor pronator mass fascia to perform a subcutaneous transposition securing this flap to the anterior superficial fascia. The elbow was brought through range of motion without significant kinking of the nerve and good elbow range of motion. No evidence of ulnar nerve compression was noted upon closure. The wound was copiously irrigated with normal saline solution. Tourniquet was deflated. Hemostasis was achieved with bipolar cautery. I performed field blocks of both incisions with 20 cc total of 2% lidocaine with epinephrine 1: 200,000. The elbow incision was closed in layers with 3-0 Vicryl intradermal buried stitches and a running subcuticular 4-0 Monocryl suture with Dermabond on the skin. Sterile compression dressing was applied. A well-padded posterior long-arm splint was applied. Patient tolerated procedure well without apparent complication. Patient was transferred to PACU in stable condition. Post Operative Plan: Weightbearing: Nonweightbearing operative extremity Antibiotics: Ancef 2 g x 1 dose preoperatively DVT Prophylaxis: Aspirin 81 mg twice daily until follow-up starting postoperative day #1 Mancini: None Dressing: Maintain splint, keep it clean dry and intact until follow-up. Patient may remove splint in 10 days if he is comfortable doing so at home. X-Rays: None Pain Medication: Oxycodone Rx upon discharge Follow-up: 2 weeks post-operatively with me in the office
== END 2022-04-24 13:56 | disposition home or self-care (01) ==
LOC: SDC 08:38 → AC 08:39
PROVIDERS: PCP Internal Medicine; Referring Provider Student in an Organized Health Care Education/Training Program; Visit Provider Student in an Organized Health Care Education/Training Program
PROC: (CPT 64721; principal; 2022-04-24 10:00)
DX: G56.02 Carpal tunnel syndrome, left upper limb (principal); G56.22 Lesion of ulnar nerve, left upper limb; I10 Essential (primary) hypertension; M19.012 Primary osteoarthritis, left shoulder; Z79.899 Other long term (current) drug therapy; Z87.891 Personal history of nicotine dependence; Z96.612 Presence of left artificial shoulder joint
CPT/HCPCS: 64718; 64721; 01810; 36415; 80048; 85027; J7120; J2405

== ENCOUNTER 2022-05-03 08:37 | Emergency (ER) | payer OTHER, SELFPAY ==
[2022-05-03 08:39] VITALS: BP 136/79; PULSE 73; RESP 16; TEMP 36.4; O2SAT 100; BMI 24.3
--- NOTE | 2022-05-03 09:17 | RAD_ITS ---
STUDY: X-RAY - LEFT SHOULDER REASON FOR EXAM: Male, 62 years old. dislocation -- post op reverse shoulder, post op left cubital TECHNIQUE: 2 view(s) of the shoulder. COMPARISON: March 24, 2022 FINDINGS: The demonstration of reverse shoulder prosthetic components. There is posterior dislocation of the articular and of the humeral prosthesis from the glenoid prosthesis. No acute fractures are seen. Normal acromioclavicular joint. Normal acromion. The soft tissue structures are unremarkable. Normal visualized pulmonary apex. RAD/Shoulder min 2 Views IMPRESSION: 1. Posterior dislocation of the humeral prosthesis from the glenoid Electronically Signed: Paddy Jones MD at 10:30 EST ,
[2022-05-03] MEDS: Morphine 4 MG/ML Syringe IV ×2 (09:28→11:45)
--- NOTE | 2022-05-03 09:57 | EDS_ITS ---
HPI History of Present Illness Chief Complaint: Disclocation Informant: patient and spouse/S.O. Narrative Narrative: Presents for concerns of recurrent dislocation left shoulder. He was using the restroom at 2 AM and felt a pop. He is status post reverse shoulder replacement December [address] Lyn. He was seen in the office March 24 attempted reduction office unsuccessful came to the ED with sedation and reproduced by the orthopedist. He followed up in the office had cubital tunnel release April [address] Lyn. He is in a posterior long-arm splint. Denies trauma. He states unable to move his arm when he felt a pop. Prior similar symptoms: Yes PFSH PFSH Medical History Arthritis Back pain Former smoker History of diverticulitis Hoarseness Hx of developmental dysplasia of the hip Leg cramps Wears glasses Home Medications acetaminophen 325 mg tablet (Tylenol) 650 mg PO Q4H PRN Pain 11/28/21 [History Last Taken Unknown] tramadol 50 mg tablet 50 mg PO QHS 03/24/22 [History Last Taken Unknown] cholecalciferol (vitamin D3) 25 mcg (1,000 unit) capsule (Vitamin D3) 25 mcg PO DAILY 04/17/22 [History Last Taken Unknown] cyanocobalamin (vitamin B-12) 50 mcg tablet (Vitamin B-12) 50 mcg PO DAILY 04/17/22 [History Last Taken Unknown] oxycodone 5 mg tablet 5 mg PO Q6H PRN pain 7 days #28 tabs 04/24/22 [Rx Last Taken Unknown] Allergy/AdvReac Type Severity Reaction Status Date / Time No Known Allergies Allergy Verified 05/03/22 08:39 Surgical History Hx of colonoscopy Hx of shoulder replacement Hx of total knee arthroplasty Social History Smoking Status: Former smoker ROS ROS ED Constitutional Constitutional ED: Denies chills, fever(s) or sweats Eyes Eyes: Denies change in vision ENT ENT ED: Denies dysphagia or sore throat Cardiovascular Cardiovascular: Denies chest pain, leg edema, palpitations or racing heartbeat Respiratory/Chest Respiratory/Chest: Denies cough, dyspnea or dyspnea on exertion Gastrointestinal Gastrointestinal: Denies abdominal pain, diarrhea, nausea or vomiting Genitourinary Genitourinary ED: Denies dysuria, hematuria or urinary frequency Musculoskeletal Musculoskeletal: Reports extremity pain; Denies back pain or neck pain Integumentary Denies rash or wounds Neurologic Neurologic: Denies headache(s), paresthesias or weakness EXAM Physical Exam Const Vital Signs: 05/03/22 08:39 Temperature 97.6 F L Temperature Source Temporal Pulse Rate 73 Respiratory Rate 16 Blood Pressure 136/79 H Blood Pressure Mean 98 Pulse Ox 100 Oxygen Delivery Method Room Air Positive well nourished and well developed General Appearance ED: well developed and NAD HEENT Reports moist mucous membranes normocephalic and atraumatic Eyes PERRL, EOMs intact bilaterally and conjunctivae normal General Eye ED: Yes normal appearance of both eyes Neck no lymphadenopathy and supple General: Negative for tenderness Chest Wall Chest: Negative for tenderness Resp normal respiratory effort and normal air movement Effort and Inspection: symmetric chest movement; Negative for respiratory distress Cardio regular rate, regular rhythm and no murmurs Peripheral Pulses: pulses 2+ throughout GI normal to inspection, nondistended, normoactive bowel sounds and non-tender Palpation: Negative for guarding or rebound tenderness present Back/Spine no CVA tenderness and no thoracic nor lumbar tenderness Extremity Extremity Narrative: Left upper extremity there is deformity proximally. Pain with movement. There is a posterior long-arm splint. Sensation intact distally. General Extremety ED: Negative for edema or tenderness General Extremity: Negative for edema Neuro oriented x3 and no sensory deficits noted Sensorium / Orientation: awake and alert Skin no rashes or lesions noted and no wounds MDM MDM MDM Narrative Medical decision making narrative: Patient clinically no concern for dislocation IV established she is given morphine prior to x-ray. 2 view x-ray reviewed by myself and read by radiology posterior dislocation with hardware intact. I spoke with his orthopedist Dr. Lyn who states he would like to come in to reduce. Sedation performed by myself. Successful reduction performed. CT scan left shoulder per request of orthopedics for outpatient evaluation. Remained stable he has pain medicines at home he is not upcoming appointment this coming Thursday for which she will keep. He will maintain the sling and swath. All questions were answered. Procedure note: Written consent. Risk and benefits discussed. 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 Normal sinus rhythm on the monitor. Timeout performed. Total of 80 mg propofol IV was pushed. Successful reduction by Dr. Lyn. Post x-ray films reviewed 2 views by myself and read by radiology successful reduction. Patient tolerated procedure well. Discharge Plan Triage Chief Complaint: Disclocation ED Provider: Juancho Cano Dx/Rx/DC Orders Clinical Impression: Dislocation of left shoulder joint, Left shoulder pain Instructions: ED Procedural Sedation, (Adult), ED Dislocation: Shoulder (Reduced), ED Sling and Swathe Prescriptions: No Action acetaminophen [Tylenol] 325 mg Tablet 650 mg PO Q4H PRN (Reason: Pain) tramadol 50 mg tablet 50 mg PO QHS Label Comments: TAKE 1 TO 2 TABLETS BY MOUTH EVERY 6 HOURS NEEDED FOR PAIN Vitamin B-12 50 mcg Tablet 50 mcg PO DAILY cholecalciferol (vitamin D3) [Vitamin D3] 25 mcg (1,000 unit) Capsule 25 mcg PO DAILY oxycodone 5 mg tablet 5 mg PO Q6H PRN (Reason: pain) 7 Days Qty: 28 0RF Primary Care Provider: Curtis Orta Referrals: Chase Lyn DO [Med Staff - Active Staff] - Keep Barbara appointment Curtis Orta MD [Primary Care Provider] - Activity Restrictions/Additional Instructions: Maintain sling and swath. Follow-up with Dr. Lyn as scheduled on Thursday. Disposition Disposition: Home, Self Care Discharge Date/Time: 05/03/22 12:47
[2022-05-03 10:40] VITALS: PULSE 68; RESP 18; O2SAT 100
[2022-05-03 10:52] VITALS: BP 126/79; PULSE 63; RESP 18; TEMP 36.6; O2SAT 100
[2022-05-03] MEDS: Propofol 200 MG/20 ML Vial IV BOLUS (11:05)
[2022-05-03] MEDS: 0.9% Normal Saline 1,000 ML 100 ML IV (11:05)
[2022-05-03 11:07] VITALS: BP 132/75; BP 139/82; BP 143/76; BP 149/91; BP 151/89; PULSE 66; PULSE 67; PULSE 68; PULSE 69; PULSE 73; RESP 16; RESP 18; RESP 20; O2SAT 100; O2SAT 99
--- NOTE | 2022-05-03 11:17 | RAD_ITS ---
STUDY: X-RAY - LEFT SHOULDER REASON FOR EXAM: Male, 62 years old. postreduction TECHNIQUE: 2 view(s) of the shoulder. COMPARISON: May 03, 2022 at 9:43 AM FINDINGS: There has been successful reduction of previously dislocated humerus. The prosthetic component is now demonstrating normal articulation. No fractures are present. Normal acromioclavicular joint. Normal acromion. The soft tissue structures are unremarkable. Normal visualized pulmonary apex. RAD/Shoulder min 2 Views IMPRESSION: 1. There has been successful reduction of previously dislocated humerus. The prosthetic component is now demonstrating normal articulation. No fractures are present. Electronically Signed: Paddy Jones MD at 11:55 EST ,
--- NOTE | 2022-05-03 11:21 | CT_ITS ---
STUDY: CT LEFT SHOULDER REASON FOR EXAM: Male, 62 years old. recurrent dislocation RADIATION DOSAGE (If Supplied By Facility): CTDIvol = ( 25.22 ) mGy, DLP = ( 590.89 ) mGycm TECHNIQUE: The patient was scanned in a multi detector CT scanner. High resolution transaxial imaging was performed without the administration of intravenous contrast material. Sagittal and coronal images were reconstructed. Individualized dose optimization techniques were used for this CT. COMPARISON: 2 shoulder x-rays dated May 03, 2022 FINDINGS: Reverse shoulder prosthetic components are intact and demonstrate good bony contact and alignment. There are no hardware complications such as loosening or abnormal lucency in the medullary bone or cortical erosion or periosteal reaction. No acute fractures are seen. There is no abnormal hardware subsidence. There is limited visualization of the soft tissues immediately surrounding the joint space due to metallic artifact. The visualized soft tissues reveal mild edema in the deltoid muscle anteriorly but no visualized fluid collections. The remaining soft tissue structures are unremarkable. Normal coracoid process. Normal visualized lateral clavicle. Normal acromioclavicular articulation. There is a Type II morphology (curved), with a neutral orientation. CT/Extremity Upper without Contra IMPRESSION: 1. No demonstrated dislocation or acute fracture. 2. No visualized shoulder prosthetic complications. 3. Mild soft tissue swelling in the anterior aspect of the deltoid muscle. Electronically Signed: Paddy Jones MD at 12:22 [facility] ,
[2022-05-03 11:23] VITALS: BP 132/75; O2SAT 99
--- NOTE | 2022-05-03 11:25 | CON.PCM.OR_ITS ---
HPI Consult Data Date of Consult: 05/03/22 HPI Narrative HPI Narrative: TANVIR DELUCA, is a 62 M who presents with a left reverse shoulder arthroplasty dislocation.Patient states he got out of bed last night needing to go to the bathroom and felt a pop in his left shoulder. He knew right away his left shoulder was dislocated. Patient sustained a dislocation to the left reverse shoulder arthroplasty requiring conscious sedation reduction on 03/24/2022. Index reverse shoulder arthroplasty was performed on 12/12/2021. He denied any other new symptoms or antecedent pain prior to the dislocation. Denies any fevers, chills, nausea vomiting or chest pain or shortness of breath. Patient underwent left cubital tunnel release and carpal tunnel release 9 days ago and states he is pain has been doing well with his surgery. Nerve pain is improved after decompressions but continues with numbness and tingling in the fourth and fifth digits of his left hand. [facility] Medical History Arthritis Back pain Former smoker History of diverticulitis Hoarseness Hx of developmental dysplasia of the hip Leg cramps Wears glasses Home Medications acetaminophen 325 mg tablet (Tylenol) 650 mg PO Q4H PRN Pain 11/28/21 [History Last Taken Unknown] tramadol 50 mg tablet 50 mg PO QHS 03/24/22 [History Last Taken Unknown] cholecalciferol (vitamin D3) 25 mcg (1,000 unit) capsule (Vitamin D3) 25 mcg PO DAILY 04/17/22 [History Last Taken Unknown] cyanocobalamin (vitamin B-12) 50 mcg tablet (Vitamin B-12) 50 mcg PO DAILY 12/30 [History Last Taken Unknown] oxycodone 5 mg tablet 5 mg PO Q6H PRN pain 7 days #28 tabs 04/24/22 [Rx Last Taken Unknown] Allergy/AdvReac Type Severity Reaction Status Date / Time No Known Allergies Allergy Verified 05/03/22 08:39 Surgical History Hx of colonoscopy Hx of shoulder replacement Hx of total knee arthroplasty Social History Smoking Status: Former smoker Vital Signs Vital Signs Vital Signs: 05/03/22 08:39 05/03/22 10:40 05/03/22 10:52 Temperature 97.6 F L Temperature Source Temporal Pulse Rate 73 68 Pulse Rate [1 (Initial Baseline)] Pulse Rate [2] Pulse Rate [3] Pulse Rate [4] Pulse Rate [5] Pulse Rate [6] Respiratory Rate 16 18 Respiratory Rate [1 (Initial Baseline)] Respiratory Rate [2] Respiratory Rate [3] Respiratory Rate [4] Respiratory Rate [5] Respiratory Rate [6] Blood Pressure 136/79 H Blood Pressure [1 (Initial Baseline)] Blood Pressure [2] Blood Pressure [3] Blood Pressure [4] Blood Pressure [5] Blood Pressure [6] Blood Pressure Mean 98 Pulse Ox 100 100 Oxygen Delivery Method Room Air Room Air Room Air Oxygen Delivery Method [1 (Initial Baseline)] Oxygen Delivery Method [2] Oxygen Delivery Method [3] Oxygen Delivery Method [4] Oxygen Delivery Method [5] Oxygen Delivery Method [6] Oxygen Flow Rate (L/min) Oxygen Flow Rate (L/min) [1 (Initial Baseline)] Oxygen Flow Rate (L/min) [2] Oxygen Flow Rate (L/min) [3] Oxygen Flow Rate (L/min) [4] Oxygen Flow Rate (L/min) [5] Oxygen Flow Rate (L/min) [6] 05/03/22 10:52 05/03/22 11:07 05/03/22 11:23 Temperature 97.9 F Temperature Source Pulse Rate 63 Pulse Rate [1 (Initial Baseline)] 67 Pulse Rate [2] 73 Pulse Rate [3] 68 Pulse Rate [4] 66 Pulse Rate [5] 68 Pulse Rate [6] 69 Respiratory Rate 18 Respiratory Rate [1 (Initial Baseline)] 16 Respiratory Rate [2] 16 Respiratory Rate [3] 18 Respiratory Rate [4] 18 Respiratory Rate [5] 20 H Respiratory Rate [6] 20 H Blood Pressure 126/79 H Blood Pressure [1 (Initial Baseline)] 149/91 H Blood Pressure [2] 143/76 H Blood Pressure [3] 143/76 H Blood Pressure [4] 151/89 H Blood Pressure [5] 139/82 H Blood Pressure [6] 132/75 H Blood Pressure Mean Pulse Ox 100 Oxygen Delivery Method Room Air Room Air Oxygen Delivery Method [1 (Initial Baseline)] Nasal Cannula Oxygen Delivery Method [2] Nasal Cannula Oxygen Delivery Method [3] Nasal Cannula Oxygen Delivery Method [4] Nasal Cannula Oxygen Delivery Method [5] Nasal Cannula Oxygen Delivery Method [6] Room Air Oxygen Flow Rate (L/min) 100 Oxygen Flow Rate (L/min) [1 (Initial Baseline)] 5 Oxygen Flow Rate (L/min) [2] 4 Oxygen Flow Rate (L/min) [3] 4 Oxygen Flow Rate (L/min) [4] 4 Oxygen Flow Rate (L/min) [5] 4 Oxygen Flow Rate (L/min) [6] 0 Weight Weight: 194 lb 7.163 oz Body Mass Index (BMI) 24.3 Physical Exam Narrative General -A&Ox3, NAD, appears stated age. Vital signs stable, afebrile. Respiratory -normal work of breathing, no intercostal retractions. CV -pulses regular, brisk capillary refill ?4 limbs. Abdomen-soft, nontender, nondistended. No guarding, rigidity, rebound tenderness. Musculoskeletal/neurologic -full range of motion nontender throughout right upper extremity, bilateral lower extremities with full sensation and strength in all dermatomes and myotomes. No midline cervical tenderness. Left upper extremity-sensation intact throughout. Gross deformity noted left shoulder. Deltopectoral incision is well-healed without erythema or drainage. Diffusely tender about the left shoulder. Cardinal motions left hand are intact. Radial pulse 2+ brisk upper refill in the fingertips.Cubital tunnel and carpal tunnel incisions are well approximated with sutures. No erythema or drainage. Radiology Impression Shoulder X-Ray 05/03/22 09:17 IMPRESSION: 1. Posterior dislocation of the humeral prosthesis from the glenoid Electronically Signed: Paddy Jones MD at 10:30 EST Reading Location ID and State: [facility] / [place] , Service support , Assessment & Plan Assessment/Plan (1) Dislocation of left shoulder joint: PLAN: Left reverse shoulder arthroplasty dislocation -Recommended closed reduction under conscious sedation. Procedure: Left reverse shoulder arthroplasty close reduction under conscious sedation Informed consent obtained. Risks, benefits, alternatives to the procedure reviewed with patient at length. A timeout was performed with all parties in attendance in agreement with the side, site, operation be performed. No concerns were voiced and elected proceed. Conscious sedation was administered by the ED physician with propofol. After adequate sedation, longitudinal traction was applied to the left arm. A palpable and audible clunk was appreciated. Range of motion flexion to 90 degrees was stable. Post reduction films revealed a well-positioned and well reduced left reverse shoulder arthroplasty. Patient was placed in a simple sling. Patient tolerated procedure well without complication. Plan for left shoulder CT scan to evaluate for etiology of recurrent instability. Patient has a follow-up scheduled on 05/09/2022 for his recent left elbow and hand surgery. We will plan to follow-up for the left shoulder as well at this time with x-rays to be obtained in the office.
[2022-05-03 12:34] VITALS: BP 170/69; PULSE 66; RESP 18; O2SAT 99
== END 2022-05-03 12:47 | disposition home or self-care (01) ==
PROVIDERS: Emergency Provider Emergency Medicine; PCP Internal Medicine; Visit Provider Emergency Medicine
DX: M24.412 Recurrent dislocation, left shoulder (principal); Z96.612 Presence of left artificial shoulder joint; Z87.891 Personal history of nicotine dependence
CPT/HCPCS: 23650; 73030; 73200; 96361; 96374; 96376; 99152; 99284; J7030; A4216

== ENCOUNTER 2022-09-23 16:29 | Inpatient (IN) | payer OTHER, SELFPAY ==
--- NOTE | 2022-09-19 12:00 | RAD_ITS ---
EXAM: XR CHEST, 2 VIEWS CLINICAL INDICATION: PRE OP TECHNIQUE: Frontal and lateral views of the chest. COMPARISON: 08/07/2017 FINDINGS: LUNGS AND PLEURAL SPACES: Unremarkable. No consolidation or edema. No pneumothorax. No effusion. HEART: Unremarkable. Cardiac silhouette not enlarged. MEDIASTINUM: Central airways and mediastinal contour are unremarkable. BONES/JOINTS: There is a total left shoulder prosthesis. SOFT TISSUES: Unremarkable. RAD/Chest PA and Lateral IMPRESSION: No acute findings in the chest. Electronically Signed: Michael Stratton MD at 23:59 EDT ,
[2022-09-19 12:28] LABS: Erythrocyte Sedimentation Rate 22 mm/hr (0-20)
[2022-09-19 12:30] LABS: Absolute Lymphocyte Count 1.01 X10^3/uL (0.83-4.51); Absolute Neutrophil Count 4.9 X10^3/uL (2.0-7.7); Basophil# 0.02 X10^3/uL; Basophil% 0.3 % (0-1); Eosinophil# 0.11 X10^3/uL; Eosinophils% 1.7 % (0-5); Hematocrit 37.1 % (40-54); Hemoglobin 11.9 g/dL (13.0-16.5); Lymphocyte # 1.01 X10^3/ul (0.83-4.51); Lymphocyte % 15.4 % (19-41); Mean Corp Hgb Conc 32.1 g/dL (32-36); Mean Corpuscular Hgb 29.2 pg (27.0-32.0); Mean Corpuscular Volume 90.9 fL (80-94); Monocyte# 0.51 X10^3/uL; Monocyte% 7.8 % (0-10); NRBC Flagged by Analyzer 0 % (0-5); Neutrophil # 4.88 X10^3/uL (2.7-7.7); Neutrophil % 74.5 % (47-70); Platelet Count 481 K/mm3 (150-450); RBC Distribution Width CV 12.9 % (11.6-14.6); RBC Distribution Width SD 42.6 fl (35.1-43.9); Red Blood Count 4.08 M/mm3 (4.6-6.2); White Blood Count 6.6 K/mm3 (4.4-11.0)
[2022-09-19 12:50] LABS: Anion Gap 4 (5-15); BUN 12 mg/dL (7-18); Calcium,Total 9.2 mg/dL (8.5-10.1); Chloride 108 mmol/L (98-107); EST Glomerular Filtration Rate 80 mL/min (>60); Est Glom Filt Rate - Afr Amer 97 mL/min (>60); Glucose 97 mg/dL (74-106); Potassium 4.2 mmol/L (3.5-5.1); Sodium Level 141 mmol/L (136-145)
[2022-09-19 14:28] LABS: Magnesium 2.2 mg/dL (1.6-2.6)
[2022-09-23] VITALS (12 sets, daily range): BP systolic 103–128; BP diastolic 56–79; PULSE 42–64; RESP 16–20; TEMP 36.1–37; O2SAT 96–100; BMI 24.5
[2022-09-23] MEDS: Magnesium 1 GM over 15 mins IV (10:53)
[2022-09-23] MEDS: Lactated Ringers 1,000 ML 15 ML IV (10:53)
[2022-09-23] MEDS: Acetaminophen 500 MG Tablet 1000 MG PO ×2 (10:54→22:40)
[2022-09-23] MEDS: Gabapentin 600 MG Tablet PO (10:54)
[2022-09-23 11:26] LABS: Bedside Glucose 99 mg/dL (74-106)
[2022-09-23] MEDS: Cefazolin 2 GM in 0.9% Normal Saline 100 ML IV (13:05)
[2022-09-23] MEDS: TXA 1000mg in NS100 100ml (IVPB at Incision) 660 MG IV (13:26)
[2022-09-23] MEDS: Vancomycin IV 1,000 MG/20 ML Vial 1000 MG OPERA.SITE (14:23)
--- NOTE | 2022-09-23 16:10 | OP.PCM_ITS ---
Report of Operation Date of Procedure: 09/23/22
--- NOTE | 2022-09-23 16:10 | PCM.OPRPT ---
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 Procedure: Irrigation and debridement left shoulder with polyethylene and glenosphere exchange Surgeon: Chase Lyn DO Medical Assisting Instructor: Daisy Valentine PA-C Anesthesia: General endotracheal with interscalene block Social Work Supervisor: Mone Dukes CRNA Estimated blood loss: 200 cc IV fluids: 1400 cc crystalloid Urine output: None recorded Packing/drains: None Specimen: Superficial and deep fluid and tissue cultures Implants: Tornier perform reversed glenoid standard glenosphere cobalt chrome 39 mm, Tornier flex reverse tray eccentric high +0 mm thickness, flex retentive reversed insert thickness +9 mm angle B Intraoperative findings: Superficial purulent fluid in the subcutaneous plane. No obvious sinus tract extending into the glenohumeral joint. Fluid and necrotic tissue concerning for prosthetic joint infection Preoperative medications: This is a 62-year-old male seen in the outpatient setting. Patient underwent left reverse shoulder arthroplasty on 12/12/2021 with myself. Patient's postoperative course was complicated by 2 separate instability events both provoked. The last dislocation was diagnosed on 05/03/2022. He has done well since then and has had return to function with the left shoulder. Patient has had intermittent pain in the left upper extremity, mostly in his hand due to suspected nerve injury versus exacerbation of pre-existing cubital tunnel syndrome for which she has been treated with tramadol. Exam of his shoulder has been benign since April 2022 with no signs or symptoms of infection. Approximately 1 week ago, patient noted redness, some pain in the anterior shoulder and appearance of subcutaneous pus. I saw the patient late last week. Subcutaneous abscess was suspected. Inflammatory markers were obtained and were elevated. I recommended urgent surgical intervention in the form of left shoulder irrigation debridement with polyethylene and glenosphere exchange. The risks, benefits, terms of procedure were reviewed with the patient at length. Risk included but were not limited to bleeding, infection, loss of life or limb, need for additional surgery, persistent infection, persistent pain, instability, neurovascular injury, stiffness, weakness, loosening of orthopedic hardware, risk of anesthesia. Patient expressed understanding of these risks and wished to proceed with surgery. Description of procedure: Patient was identified in the preoperative holding area by name, medical record number, date of . The operative extremity marked. All questions answered patient satisfaction. An interscalene block was administered by anesthesia staff prior to procedure. At time of his procedure, patient brought to the operative suite and positioned supine on a standard operating table of beachchair attachment. General anesthesia was induced and endotracheal tube placed. All bony prominences were well-padded. Patient was then positioned in the beachchair position. We spun the bed 45 degrees. The left upper extremity was prepped and draped in normal, sterile orthopedic fashion utilizing Betadine prep. 2 g Ancef was administered prior to incision due to cultures being obtained in the outpatient setting. We performed timeout with all parties in attendance in agreement with the side, site, operation be performed. No concerns voiced elected proceed with surgery. The central portion of the wound demonstrated the subcutaneous purulence. Skin was sharply incised with a 10 blade scalpel. No significant purulent fluid was encountered, slough and necrotic tissue was encountered as well as serosanguineous fluid. Fluid culture was obtained. Superficial debridement was performed sharply with 15 blade scalpel approximately an area of 4 x 2 cm. Fascial layer appeared to be violated by the infection. Tissue cultures were obtained in this layer. I bluntly dissected medially and deep tracking fluid. I would then encountered the joint capsule of the left shoulder. I was unable to identify any sinus tract. I made the decision to open the glenohumeral joint for further evaluation. Fluid was encountered, serosanguineous with necrotic tissue noted within the joint. No gross purulence was encountered. Fluid cultures were obtained here. Tissue cultures were also obtained. I then remove the polyethylene, humeral tray, and glenosphere. Aggressive synovectomy was performed. I copiously irrigated the glenohumeral joint with 6 L normal saline solution with pulse lavage. A 3-minute sterile Betadine dilute soak was performed. Top layer of drapes were removed. We changed our gloves at this time. No obvious abnormality was noted at the glenoid baseplate. Both the humeral stem and glenoid baseplate demonstrated no gross instability. I then selected a 39 mm glenosphere and this was impacted in standard fashion and locking screw tightened. I then trialed tray and polyethylene inserts. We selected a +0 mm tray with high eccentricity and a 9 mm angle B retentive poly due to history of instability. His range of motion appeared excellent in all planes of motion without any levering or evidence of instability. I thoroughly irrigated the wound with an additional 3 L of normal saline solution. 1 g vancomycin powder was placed in the wound, three quarters in the joint and one quarter in the subcutaneous tissue. The fascial layer was reapproximated in watertight fashion with a running, locking 0 PDS suture. Dermis was reapproximated with interrupted buried intradermal 2-0 PDS suture. Skin was finally reapproximated interrupted horizontal mattress 2-0 nylon suture. A Prevena incisional wound VAC dressing was applied. Patient was then placed in UltraSling. He tolerated procedure well without complication. He was safely awoken the operative suite and transferred to PACU in stable condition. Need for skilled medical office receptionist assistant: Daisy Valentine PA-C was critical to the outcome of the case. During the course of the procedure the physician medical office receptionist assistant played a vital role. Her intimate knowledge of my steps in the procedure aided in safe and expedient completion of the procedure. The PA played a vital role in positioning particularly in obtaining the appropriate positioning. The PA was also vital in the retraction of soft tissues during the exposure and protecting vital structures. The PA was also vital and joint dislocation and assisting with hardware placement. She also played a vital role in closure and sling application with my direct supervision. Postoperative plan: Nonweightbearing operative extremity, maintain sling. Maintain Prevena dressing x7 days Cultures pending Patient will be admitted, we will provisionally start patient on vancomycin and ceftriaxone. Infectious disease consulted. Pain control
[2022-09-23] MEDS: 0.9% Normal Saline 1,000 ML 125 ML IV (19:02)
--- NOTE | 2022-09-23 19:21 | PCM.RX.CS ---
Consult Pharmacy has been consulted to manage selected antiobiotic: Vancomycin Type of Consult: New start Suspected Infection: Skin/Soft tissue Prior Doses of Antibiotics Received/Current Regimen: 1250MG 09/23/22 @ 1903 Labs: Sodium 141 mmol/L (136-145) 09/19/22 11:44 Potassium 4.2 mmol/L (3.5-5.1) 09/19/22 11:44 Chloride 108 mmol/L (98-107) H 09/19/22 11:44 Carbon Dioxide 29.0 mmol/L (21.0-32.0) 09/19/22 11:44 Anion Gap 4 (5-15) L 09/19/22 11:44 BUN 12 mg/dL (7-18) 09/19/22 11:44 Creatinine 1.00 mg/dL (0.70-1.30) 09/19/22 11:44 Est GFR (MDRD) Af Amer 97 mL/min (>60) 09/19/22 11:44 Est GFR (MDRD) Non-Af 80 mL/min (>60) 09/19/22 11:44 BUN/Creatinine Ratio 12.0 RATIO (10-20) 09/19/22 11:44 Glucose 97 mg/dL (74-106) 09/19/22 11:44 Microbiology: Microbiology 09/19/22 Unknown Wound Abcess - Shoulder Gram Stain - Final 09/19/22 Unknown Wound Abcess - Shoulder Wound Culture - Final No growth aerobically. 09/19/22 Unknown Wound Abcess - Shoulder Anaerobic Culture - Preliminary No growth in 48 hours. 09/19/22 11:44 Swab (Method) Nasal Screen MRSA/MSSA - Final Weight used for dosin.3 kg Estimated Creatinine Clearance: 94 Goal Trough: 10-15 mcg/mL Pharmacy Plan for Drug Dosing: START 1250MG OF VANCOMYCIN EVERY 12 HOURS STARTING 09/24/22 @ 0700 Pharmacy Service will continue to monitor and adjust dosing as required. Follow-Up Labs: Trough Vancomycin Labs to be done on [date and time ordered]: 09/25/22 @ 0630
[2022-09-23] MEDS: Senna/Docusate Sodium 1 Tablet 2 TABLET PO (22:41)
[2022-09-23] MEDS: oxyCODONE 5 MG Tablet PO (22:51)
[2022-09-24 05:15] VITALS: BP 109/60; PULSE 68; RESP 18; TEMP 37.1; O2SAT 96
[2022-09-24] MEDS: oxyCODONE 5 MG Tablet PO ×4 (05:22→22:03)
[2022-09-24] MEDS: Acetaminophen 500 MG Tablet 1000 MG PO ×3 (05:22→22:03)
[2022-09-24] MEDS: 0.9% Normal Saline 1,000 ML 125 ML IV ×2 (05:24→17:26)
[2022-09-24 07:00] LABS: Hematocrit 31.8 % (40-54); Hemoglobin 10.1 g/dL (13.0-16.5); Mean Corp Hgb Conc 31.8 g/dL (32-36); Mean Corpuscular Hgb 28.9 pg (27.0-32.0); Mean Corpuscular Volume 90.9 fL (80-94); Platelet Count 397 K/mm3 (150-450); RBC Distribution Width CV 13.2 % (11.6-14.6); RBC Distribution Width SD 43.5 fl (35.1-43.9); White Blood Count 7.3 K/mm3 (4.4-11.0)
[2022-09-24 07:42] LABS: Anion Gap 6 (5-15); BUN 11 mg/dL (7-18); Calcium,Total 8.1 mg/dL (8.5-10.1); Chloride 111 mmol/L (98-107); EST Glomerular Filtration Rate 80 mL/min (>60); Est Glom Filt Rate - Afr Amer 97 mL/min (>60); Estimated Creatinine Clearance 89.19 ml/min; Glucose 99 mg/dL (74-106); Potassium 3.8 mmol/L (3.5-5.1); Sodium Level 142 mmol/L (136-145)
[2022-09-24 08:33] VITALS: BP 115/68; PULSE 66; RESP 18; TEMP 36.8; O2SAT 98
[2022-09-24] MEDS: Cholecalciferol (VIT D3) 25 MCG TABLET (1,000 UNITS) PO (08:36)
[2022-09-24] MEDS: Senna/Docusate Sodium 1 Tablet 2 TABLET PO ×2 (08:36→22:02)
[2022-09-24] MEDS: Aspirin E.C. 81 MG Tablet PO (08:36)
[2022-09-24] MEDS: Meloxicam 7.5 MG Tablet PO ×2 (08:36→22:02)
--- NOTE | 2022-09-24 11:37 | CASEMGMT ---
Addendum entered by Sarah Anand 09/24/22 13:45: Noted pt will need 6 wks of IV atb, YAYA TOTH into pt room and provided a list of HHC providers including quality and resource use data and consistent with the patient?s preferred geographic region, medical needs, and insurance network were provided from the [employer] Guide. Also provided a verbal home infusion company list. Pt and to review and RN NAVNEET to check back. Original Note: YAYA TOTH Assessment: Face to Face with pt for initial transition planning/care coordination assessment. YYAA TOTH introduced self and role at [facility], pt voices understanding and consents to assessment. Pt is A/O x4 and answers all questions appropriately at this time. Pt sitting up in chair with and mother at bedside. Pt agreeable to assessment with visitors present. Care providers, pharmacy, and demographics verified/updated. Admitting Dx: I&D Lt rev total shoulder poly exchange PCP:You Specialists:binta Lyn Pharmacy: [facility] Retail Insurance: [employer] Prescription Benefit: yes LNOK: Ameena Huffman, ; Loreto Huffman, mother Living Arrangements: Pt lives with in a single story home with 3 steps to enter with a rail. Pt reports he was I in ADL's prior to surgery. is able to assist pt post surgery. Pt denies concerns at home. Transportation: Pt drives self and denies concerns with transportation. Pt to transport pt until he is medically able. DME/HHC/SNF: Pt has canes at home but does not use AD. Pt has had HHC in the past but is not sure which agency provided it. Pt denies SNF stays. Pt states no concerns with going home at time of dc. Discussed that ID is consulted for pt. Pt states should he need IV atb, he would still want to do this at home. Pt is able and willing to learn and she confirmed this. Pt aware after consult, YAYA TOTH will touch base with him if IV needed for discussion of HHC and Infusion companies. Pt verbalizes understanding. Pt states no further concerns/needs. CM to follow. Advised pt to ask CM if any further question/concerns/needs arise, voices understanding. Pt Goal: Home Plan: Home vs Home with HHC pending need for IV atb.
--- NOTE | 2022-09-24 12:55 | PCM.CONS.GEN ---
Assessment & Plan Assessment/Plan (1) Infection of prosthetic shoulder joint: PLAN: Taken to OR 09/23/[address] Lyn. Outpt cx 09/19 neg so far. Single surg cx with GNR. Cont vanc/ceftriaxone for now. Will order picc. Planned 6 weeks iv abx. Will follow, thank you HPI Consult Data Date of Consult: 09/24/22 HPI Narrative Reason for Consultation: PJI HPI Narrative: TANVIR DELUCA, is a 62 M with L shoulder replacement in 12/2021. Course complicated by dislocation x2. Reports since initial surgery, had a small lump anteriorally. Over past 3 weeks, lump enlarged, mild tenderness, started to have some seepage. No fever, chills, night sweats. Saw ortho, lancing was done 09/19, cx sent, put on doxy, took for 2-3 days, arm worsened, admitted and taken to OR 09/[address] Lyn. Now on vanc/ceftriaxone, feeling ok. Full ROS performed and neg except as noted above. [facility] Medical History Arthritis Back pain Former smoker History of diverticulitis History of edema Hoarseness Hx of developmental dysplasia of the hip Leg cramps Open wound Wears glasses Home Medications acetaminophen 325 mg tablet (Tylenol) 650 mg PO Q4H PRN Pain 11/28/21 [History Last Taken Unknown] tramadol 50 mg tablet 50 mg PO QHS 03/24/22 [History Last Taken 09/22/22] cholecalciferol (vitamin D3) 25 mcg (1,000 unit) capsule (Vitamin D3) 25 mcg PO DAILY 04/17/22 [History Last Taken 09/18/22] cyanocobalamin (vitamin B-12) 50 mcg tablet (Vitamin B-12) 50 mcg PO DAILY 04/17/22 [History Last Taken 09/18/22] Allergy/AdvReac Type Severity Reaction Status Date / Time No Known Allergies Allergy Verified 09/23/22 10:51 Surgical History (Updated 09/19/22 @ 13:23 by Jackie Catalan) History of carpal tunnel surgery of left wrist Hx of colonoscopy Hx of shoulder replacement Hx of total knee arthroplasty Social History Smoking Status: Former smoker Physical Exam Const alert, oriented x3 and no apparent distress General Appearance: cooperative HEENT normocephalic and head/scalp atraumatic Eyes PERRL and EOMs intact bilaterally Neck supple and No nodes Resp normal air movement and clear to auscultation bilaterally Cardio regular rate and regular rhythm GI soft to palpation, non-tender and non-distended Extremity General Extremity: Negative for edema Skin Skin Narrative: L shoulder wrapped Neuro CN's II-XII intact bilaterally Lab / Micro Data Attestation: I reviewed the patient's lab results. Result Diagrams: 09/24/22 06:00 09/24/22 06:00 Labs: Laboratory Results - last 24 hr 09/24/22 06:00: WBC 7.3, RBC 3.50 L, Hgb 10.1 L, Hct 31.8 L, MCV 90.9, MCH 28.9, MCHC 31.8 L, RDW Std Deviation 43.5, RDW Coeff of Brianne 13.2, Plt Count 397, MPV 9.0 09/24/22 06:00: Sodium 142, Potassium 3.8, Chloride 111 H, Carbon Dioxide 25.0, Anion Gap 6, BUN 11, Creatinine 1.00, Estim Creat Clear Calc 89.19, Est GFR (MDRD) Af Amer 97, Est GFR (MDRD) Non-Af 80, BUN/Creatinine Ratio 11.0, Glucose 99, Calcium 8.1 L Micro: Microbiology 09/23/22 Unknown Tissue - Shoulder Gram Stain - Final 09/23/22 Unknown Tissue - Shoulder Wound Culture - Preliminary No growth-Final to follow 09/23/22 Unknown Tissue - Shoulder Gram Stain - Final 09/23/22 Unknown Tissue - Shoulder Wound Culture - Preliminary No growth-Final to follow 09/23/22 Unknown Tissue - Shoulder Gram Stain - Final 09/23/22 Unknown Tissue - Shoulder Wound Culture - Preliminary Gram negative michael 09/23/22 Unknown Tissue - Shoulder Gram Stain - Final 09/23/22 Unknown Tissue - Shoulder Wound Culture - Preliminary No growth-Final to follow 09/23/22 Unknown Wound Abcess - Aerobic & Anaerobic Swabs Gram Stain - Final 09/23/22 Unknown Wound Abcess - Aerobic & Anaerobic Swabs Wound Culture - Preliminary No growth-Final to follow 09/23/22 Unknown Wound Abcess - Arm Left Gram Stain - Final 09/23/22 Unknown Wound Abcess - Arm Left Wound Culture - Preliminary No growth-Final to follow 09/23/22 Unknown Wound Abcess - Arm Left Gram Stain - Final 09/23/22 Unknown Wound Abcess - Arm Left Wound Culture - Preliminary No growth-Final to follow 09/23/22 Unknown Tissue - Shoulder Gram Stain - Final 09/19/22 Unknown Wound Abcess - Shoulder Gram Stain - Final 09/19/22 Unknown Wound Abcess - Shoulder Wound Culture - Final No growth aerobically. 09/19/22 Unknown Wound Abcess - Shoulder Anaerobic Culture - Final No growth in 5 days.
[2022-09-24 14:15] VITALS: BP 110/68; PULSE 62; RESP 18; TEMP 36.9; O2SAT 98
--- NOTE | 2022-09-24 14:16 | CASEMGMT ---
Discharge Planning Referral for infusion services sent to I via [facility]. Felisa Cadena
--- NOTE | 2022-09-24 14:59 | CASEMGMT ---
HH referral sent to [facility] HH via [facility] with follow up call. Felisa Cadena
--- NOTE | 2022-09-24 15:09 | CASEMGMT ---
Discharge Planning [facility] declined referral. Patients next choices are; [facility], [facility], and [facility] Felisa Cadena
--- NOTE | 2022-09-24 15:31 | CASEMGMT ---
Discharge Planning Referrals sent to [facility], and [facility] via [facility]. Felisa Cadena
--- NOTE | 2022-09-24 15:46 | CM.UR ---
Discharge Planning [facility] declined d/t staffing, [facility] declined d/t out of area, [facility] declined (no reason given). Referral sent to [facility] via [facility]. Felisa Cadena
--- NOTE | 2022-09-24 15:58 | CASEMGMT ---
Discharge Planning HH referrals sent via [facility] to [facility] of [facility], [facility], [facility], and [facility]. Felisa Cadena
[2022-09-24] MEDS: 0.9% Saline Lock 10 ML Syringe IV ×2 (17:27→22:03)
--- NOTE | 2022-09-24 17:30 | PCM.PN.ORT ---
Subjective Subjective Patient seen and examined. Denies any new complaints. States his pain is well controlled. Denies fevers, chills, nausea vomiting, chest pain or shortness of breath. Objective Data Objective Data Vital Signs: Vital Signs Temp Pulse Resp BP Pulse Ox O2 Del Method O2 Flow Rate 98.5 F 62 18 110/68 98 Room Air 4 09/24/22 14:15 09/24/22 14:15 09/24/22 14:15 09/24/22 14:15 09/24/22 14:15 09/24/22 14:15 09/23/22 16:42 Oxygen Flow Rate (L/min) 4 Oxygen Delivery Method Room Air Weight: 196 lb 13.965 oz Body Mass Index (BMI) 24.5 Intake & Output: Intake and Output for Last 24 Hours 09/22/22 09/23/22 09/24/22 23:59 23:59 23:59 Intake Total 2247 / 2247 2827.08 / 2827.08 Output Total 300 / 300 750 / 750 Balance 1946 / 194 2077.08 / 2076.08 Lab / Micro Data Result Diagrams: 09/24/22 06:00 09/24/22 06:00 Labs: Laboratory Results - last 24 hr 09/24/22 06:00: WBC 7.3, RBC 3.50 L, Hgb 10.1 L, Hct 31.8 L, MCV 90.9, MCH 28.9, MCHC 31.8 L, RDW Std Deviation 43.5, RDW Coeff of Brianne 13.2, Plt Count 397, MPV 9.0 09/24/22 06:00: Sodium 142, Potassium 3.8, Chloride 111 H, Carbon Dioxide 25.0, Anion Gap 6, BUN 11, Creatinine 1.00, Estim Creat Clear Calc 89.19, Est GFR (MDRD) Af Amer 97, Est GFR (MDRD) Non-Af 80, BUN/Creatinine Ratio 11.0, Glucose 99, Calcium 8.1 L Micro: Microbiology 09/23/22 Unknown Tissue - Shoulder Gram Stain - Final 09/23/22 Unknown Tissue - Shoulder Wound Culture - Preliminary No growth-Final to follow 09/23/22 Unknown Tissue - Shoulder Gram Stain - Final 09/23/22 Unknown Tissue - Shoulder Wound Culture - Preliminary No growth-Final to follow 09/23/22 Unknown Tissue - Shoulder Gram Stain - Final 09/23/22 Unknown Tissue - Shoulder Wound Culture - Preliminary Gram negative michael 09/23/22 Unknown Tissue - Shoulder Gram Stain - Final 09/23/22 Unknown Tissue - Shoulder Wound Culture - Preliminary No growth-Final to follow 09/23/22 Unknown Wound Abcess - Aerobic & Anaerobic Swabs Gram Stain - Final 09/23/22 Unknown Wound Abcess - Aerobic & Anaerobic Swabs Wound Culture - Preliminary No growth-Final to follow 09/23/22 Unknown Wound Abcess - Arm Left Gram Stain - Final 09/23/22 Unknown Wound Abcess - Arm Left Wound Culture - Preliminary No growth-Final to follow 09/23/22 Unknown Wound Abcess - Arm Left Gram Stain - Final 09/23/22 Unknown Wound Abcess - Arm Left Wound Culture - Preliminary No growth-Final to follow 09/23/22 Unknown Tissue - Shoulder Gram Stain - Final 09/19/22 Unknown Wound Abcess - Shoulder Gram Stain - Final 09/19/22 Unknown Wound Abcess - Shoulder Wound Culture - Final No growth aerobically. 09/19/22 Unknown Wound Abcess - Shoulder Anaerobic Culture - Final No growth in 5 days. 09/19/22 11:44 Swab (Method) Nasal Screen MRSA/MSSA - Final Physical Exam Narrative General - A&Ox3, NAD. VSS/AF. Left upper Extremity - SILT & motor intact in radial, ulnar, musculocutaneous, axillary, and median nerve distributions. Radial, ulnar pulses 2+. Compartments soft and compressible. BCR in finger tips. Incisional wound VAC dressing C/D/I with no output and good suction seal. Assessment & Plan Assessment/Plan (1) Infection of prosthetic shoulder joint: PLAN: POD#1 s/p left shoulder I&D with polyethylene and glenosphere exchange - Pain control -Infectious disease following. Appreciate recommendations. Single culture showing gram-negative rods. Likely await sensitivities prior to discharge. PICC line ordered by ID. - OT -okay for range of motion of the left elbow wrist and hand. We will avoid any significant movement of the left shoulder for at least 1 week to allow for wound healing. - DVT PPX -aspirin, SCDs, JOSELUIS hose, early mobilization - Case management - D/C planning
[2022-09-24 21:52] VITALS: BP 122/81; PULSE 62; RESP 18; TEMP 37.4; O2SAT 100
[2022-09-25 03:25] VITALS: BP 133/68; PULSE 63; RESP 18; TEMP 37.3; O2SAT 96
[2022-09-25] MEDS: oxyCODONE 5 MG Tablet PO ×2 (03:31→11:09)
[2022-09-25] MEDS: Acetaminophen 500 MG Tablet 1000 MG PO ×2 (06:38→14:35)
[2022-09-25 07:11] LABS: Vancomycin, Trough Level 16.5 ug/mL (5.0-15.0)
--- NOTE | 2022-09-25 08:35 | CASEMGMT ---
Discharge Planning PICC insertion report sent to [facility] via [facility]. Felisa Cadena
--- NOTE | 2022-09-25 08:38 | CASEMGMT ---
Discharge Planning [facility] declined d/t lack of staffing. Felisa Cadena
[2022-09-25] MEDS: Cholecalciferol (VIT D3) 25 MCG TABLET (1,000 UNITS) PO (09:15)
[2022-09-25] MEDS: Aspirin E.C. 81 MG Tablet PO (09:15)
[2022-09-25] MEDS: Meloxicam 7.5 MG Tablet PO (09:15)
[2022-09-25] MEDS: Senna/Docusate Sodium 1 Tablet 2 TABLET PO (09:15)
[2022-09-25 09:19] VITALS: BP 158/97; PULSE 64; RESP 18; TEMP 37; O2SAT 97
--- NOTE | 2022-09-25 09:25 | PCM.RX.CS ---
Consult Pharmacy has been consulted to manage selected antiobiotic: Vancomycin Type of Consult: Follow-up Suspected Infection: Skin/Soft tissue Prior Doses of Antibiotics Received/Current Regimen: On 1250mg iv q12h. Labs: Sodium 142 mmol/L (136-145) 09/24/22 06:00 Potassium 3.8 mmol/L (3.5-5.1) 09/24/22 06:00 Chloride 111 mmol/L (98-107) H 09/24/22 06:00 Carbon Dioxide 25.0 mmol/L (21.0-32.0) 09/24/22 06:00 Anion Gap 6 (5-15) 09/24/22 06:00 BUN 11 mg/dL (7-18) 09/24/22 06:00 Creatinine 1.00 mg/dL (0.70-1.30) 09/24/22 06:00 Est GFR (MDRD) Af Amer 97 mL/min (>60) 09/24/22 06:00 Est GFR (MDRD) Non-Af 80 mL/min (>60) 09/24/22 06:00 BUN/Creatinine Ratio 11.0 RATIO (10-20) 09/24/22 06:00 Glucose 99 mg/dL (74-106) 09/24/22 06:00 Vancomycin Trough 16.5 ug/mL (5.0-15.0) H 09/25/22 06:30 Microbiology: Microbiology 09/23/22 Unknown Wound Abcess - Aerobic & Anaerobic Swabs Gram Stain - Final 09/23/22 Unknown Wound Abcess - Aerobic & Anaerobic Swabs Wound Culture - Final No growth aerobically. 09/23/22 Unknown Tissue - Shoulder Gram Stain - Final 09/23/22 Unknown Tissue - Shoulder Wound Culture - Final No growth aerobically. 09/23/22 Unknown Wound Abcess - Arm Left Gram Stain - Final 09/23/22 Unknown Wound Abcess - Arm Left Wound Culture - Final No growth aerobically. 09/23/22 Unknown Wound Abcess - Arm Left Gram Stain - Final 09/23/22 Unknown Wound Abcess - Arm Left Wound Culture - Final No growth aerobically. 09/23/22 Unknown Tissue - Shoulder Gram Stain - Final 09/23/22 Unknown Tissue - Shoulder Wound Culture - Preliminary Pseudomonas aeruginosa 09/23/22 Unknown Tissue - Shoulder Gram Stain - Final 09/23/22 Unknown Tissue - Shoulder Wound Culture - Preliminary No growth-Final to follow 09/23/22 Unknown Tissue - Shoulder Gram Stain - Final 09/23/22 Unknown Tissue - Shoulder Wound Culture - Preliminary No growth-Final to follow 09/23/22 Unknown Tissue - Shoulder Gram Stain - Final 09/23/22 Unknown Tissue - Shoulder Wound Culture - Preliminary No growth-Final to follow 09/19/22 Unknown Wound Abcess - Shoulder Gram Stain - Final 09/19/22 Unknown Wound Abcess - Shoulder Wound Culture - Final No growth aerobically. 09/19/22 Unknown Wound Abcess - Shoulder Anaerobic Culture - Final No growth in 5 days. 09/19/22 11:44 Swab (Method) Nasal Screen MRSA/MSSA - Final Weight used for dosin kg Estimated Creatinine Clearance: 89 ml/min Goal Trough: 15-20 mcg/mL Pharmacy Plan for Drug Dosing: Trough today 16.5. Called Dr. Durham, he would like trough to be 15-20. Renal status reviewed with Cr 1.0, CrCl 89. Will continue same dose. New trough ordered for 09.26.22. Pharmacy Service will continue to monitor and adjust dosing as required. Follow-Up Labs: Trough Vancomycin - 09.26.22 @1830 before 1900 dose
--- NOTE | 2022-09-25 09:30 | CASEMGMT ---
Discharge Planning Referral sent to [facility] via [facility]. Call placed to Daryn regarding staffing. She stated that at this time, she is unable to start care for any new referrals until Thursday. RN CM notified. Felisa Cadena
--- NOTE | 2022-09-25 09:32 | EKG12_ITS ---
Test Reason : Blood Pressure : / mmHG Vent. Rate : 061 BPM Atrial Rate : 061 BPM P-R Int : 168 ms QRS Dur : 072 ms QT Int : 412 ms P-R-T Axes : 017 011 026 degrees QTc Int : 414 ms Normal sinus rhythm with sinus arrhythmia Normal ECG When compared with ECG of 07-AUG-2017 17:07, QRS duration has decreased ST elevation now present in Lateral leads Confirmed by JOHANNY CONWAY, ANUP ([id number]), editor farm journal MARIIA ANDERSON ([id number]) on 09/26/2022 9:51:17 AM Referred By: Chase Lyn Confirmed By:ANUP ORLANDO MD
--- NOTE | 2022-09-25 10:02 | CASEMGMT ---
Discharge Planning Infusion and HH referrals cancelled via [facility]. Patient will return home on PO antibiotics. Felisa Cadena
--- NOTE | 2022-09-25 10:04 | PCM.PN.ID ---
Physical Exam Narrative Feeling ok, pain controlled, no fever, no n/v/d Const alert and no apparent distress Resp normal air movement and clear to auscultation bilaterally Cardio regular rate and regular rhythm GI soft to palpation, non-tender and non-distended Skin Skin Narrative: L shoulder wrapped ID ID: Route of nutrition/ use of supplements: [] Nutritional Intake: [] IV Site: [] Mancini Catheter: [] Assessment & Plan Assessment/Plan (1) Infection of prosthetic shoulder joint: PLAN: Taken to OR 09/23/[address] Lyn. Outpt cx 09/19 neg so far. Single surg cx with Pseudomonas (R to zosyn/cefepime). On vanc/ceftriaxone. Will start cipro po 750mg bid, plan on 6 weeks of this then long course at lower dose. Ok for picc removal at discharge. Will check EKG for baseline QTC monitoring. Counseled him re: risk of diarrhea, tendonopathy, peripheral neuropathy, QTC prolongation. ID followup in 2 weeks. Will follow, d/w case management. Wrote rx for cipro.
--- NOTE | 2022-09-25 10:33 | CASEMGMT ---
Addendum entered by Sarah Anand 09/25/22 13:45: TC to [facility] Retail pharmacy, spoke with Donavon, he is aware pt requests meds be delivered to the room. Original Note: Spoke with ID who states pt will dc on po atb. YAYA CM into pt room, pt sitting up in chair with at bedside. Pt is aware he will not need IV atb, he denies need for any HHC now. Pt requests rx be sent up to the room. Made aware that this RN CM will notify pharmacy once all dc meds are ordered. Pt and verbalize understanding. Pt denies further needs.
[2022-09-25] MEDS: Ciprofloxacin 500 MG Tablet 750 MG PO (11:06)
--- NOTE | 2022-09-25 13:44 | DS.PCM_ITS ---
Providers Date of Admission: 09/23/22 Primary Care Physician: Dr. Curtis Orta MD Consultations 09/23/22 16:09 Consult: Infectious Disease Routine Consulting Provider: Marquise Durham Reason for Consult: Left shoulder prosthetic joint infection EMERGENT Consult: No MD Notified: Yes Date Notified: 09/23/22 Time Notified: 23:59 Method of Notification: Answering Service Reason For Visit: I&D LT REV TOTAL SHLDR POLY EXCHANGE Diagnosis Discharge Diagnosis (1) Infection of prosthetic shoulder joint: Status: Acute Code(s): T84.59XA - Infection and inflammatory reaction due to other internal joint prosthesis, initial encounter; Z96.619 - Presence of unspecified artificial shoulder joint Plan: POD#1 s/p left shoulder I&D with polyethylene and glenosphere exchange - Pain control -Infectious disease following. Appreciate recommendations. Single culture showing gram-negative rods. Likely await sensitivities prior to discharge. PICC line ordered by ID. - OT -okay for range of motion of the left elbow wrist and hand. We will avoid any significant movement of the left shoulder for at least 1 week to allow for wound healing. - DVT PPX -aspirin, SCDs, JOSELUIS hose, early mobilization - Case management - D/C planning Medications at Discharge Home Medications acetaminophen 325 mg tablet (Tylenol) 650 mg PO Q4H PRN Pain 11/28/21 tramadol 50 mg tablet 50 mg PO QHS 03/24/22 cholecalciferol (vitamin D3) 25 mcg (1,000 unit) capsule (Vitamin D3) 25 mcg PO DAILY 04/17/22 cyanocobalamin (vitamin B-12) 50 mcg tablet (Vitamin B-12) 50 mcg PO DAILY 04/17/22 ciprofloxacin HCl 500 mg tablet 750 mg PO BID 40 days #120 tabs 09/25/22 oxycodone 5 mg tablet 5 mg PO Q6H PRN pain 7 days #28 tabs 09/25/22 Hospital Course Summary of Care Provided Minutes Spent on Discharge: 15 Hospital Course: Patient underwent left reverse shoulder arthroplasty irrigation debridement with exchange of modular components on 09/23/2022. Intraoperative cultures were positive for Pseudomonas aeruginosa. He was started on antibiotics postoperatively. Infectious disease was consulted. Oral antibiotics were recommended after cultures finalized on postoperative day #2. A PICC line was placed on postoperative day #1 and subsequently pulled due to lack of indication for IV antibiotics as an outpatient. Patient's pain was controlled. Otherwise his hospital course was uneventful. No medical or surgical complications were encountered throughout his stay. He was able to be safely discharged home in stable condition on postoperative day #2 on oral ciprofloxacin. Plan to follow- up with Dr. Lyn in 1 week for wound check and Dr. Durham in 2 weeks. Physical Exam Narrative General - A&Ox3, NAD. VSS/AF. Left upper Extremity - SILT & motor intact in radial, ulnar, musculocutaneous, axillary, and median nerve distributions. Radial, ulnar pulses 2+. Compartments soft and compressible. BCR in finger tips. Incisional wound VAC dressing C/D/I with no output and good suction seal. Weight / BMI Weight Weight: 196 lb 13.965 oz Body Mass Index (BMI) 24.5 ABG / Lab / Microbiology Data Result Diagrams: 09/24/22 06:00 09/24/22 06:00 Laboratory: Laboratory Results - last 24 hr 09/25/22 06:30: Vancomycin Trough 16.5 H Microbiology: Microbiology 09/23/22 Unknown Tissue - Shoulder Gram Stain - Final 09/23/22 Unknown Tissue - Shoulder Wound Culture - Final No growth aerobically. 09/23/22 Unknown Tissue - Shoulder Gram Stain - Final 09/23/22 Unknown Tissue - Shoulder Wound Culture - Preliminary No growth-Final to follow 09/23/22 Unknown Tissue - Shoulder Gram Stain - Final 09/23/22 Unknown Tissue - Shoulder Wound Culture - Preliminary Pseudomonas aeruginosa 09/23/22 Unknown Tissue - Shoulder Gram Stain - Final 09/23/22 Unknown Tissue - Shoulder Wound Culture - Final No growth aerobically. 09/23/22 Unknown Wound Abcess - Aerobic & Anaerobic Swabs Gram Stain - Final 09/23/22 Unknown Wound Abcess - Aerobic & Anaerobic Swabs Wound Culture - Final No growth aerobically. 09/23/22 Unknown Tissue - Shoulder Gram Stain - Final 09/23/22 Unknown Tissue - Shoulder Wound Culture - Final No growth aerobically. 09/23/22 Unknown Wound Abcess - Arm Left Gram Stain - Final 09/23/22 Unknown Wound Abcess - Arm Left Wound Culture - Final No growth aerobically. 09/23/22 Unknown Wound Abcess - Arm Left Gram Stain - Final 09/23/22 Unknown Wound Abcess - Arm Left Wound Culture - Final No growth aerobically. 09/19/22 Unknown Wound Abcess - Shoulder Gram Stain - Final 09/19/22 Unknown Wound Abcess - Shoulder Wound Culture - Final No growth aerobically. 09/19/22 Unknown Wound Abcess - Shoulder Anaerobic Culture - Final No growth in 5 days. 09/19/22 11:44 Swab (Method) Nasal Screen MRSA/MSSA - Final D/C Instructions Discharge Diet: No restrictions Weight Bearing Status: No weight bearing (LUE) Meaningful Use Info Meaningful Use Diagnoses (Choose all that apply): None applicable Discharge Plan Admission Admit Date/Time: 09/23/22 16:29 Primary Reason for Your Visit: Left shoulder irrigation and debridement Attending Provider: Chase Lyn Primary Care Provider: Curtis Orta Consulting Providers: Marquise Durham Instructions Additional Instructions / Restrictions: Maintain sling until follow-up, remove for hygiene and exercise only as directed by therapy. Maintain wound VAC dressing until follow-up with Dr. Lyn Take antibiotics as prescribed No driving until follow-up Discharge Orders/Prescriptions Prescriptions: New ciprofloxacin HCl 500 mg Tablet 750 mg PO BID 40 Days Qty: 120 0RF oxycodone 5 mg tablet 5 mg PO Q6H PRN (Reason: pain) 7 Days Qty: 28 0RF No Action acetaminophen [Tylenol] 325 mg Tablet 650 mg PO Q4H PRN (Reason: Pain) tramadol 50 mg tablet 50 mg PO QHS Label Comments: TAKE 1 TO 2 TABLETS BY MOUTH EVERY 6 HOURS NEEDED FOR PAIN Vitamin B-12 50 mcg Tablet 50 mcg PO DAILY cholecalciferol (vitamin D3) [Vitamin D3] 25 mcg (1,000 unit) Capsule 25 mcg PO DAILY Referrals / Follow Up: Chase Lyn DO [Med Staff - Active Staff] - 10/01/22 Curtis Orta MD [Primary Care Provider] - Disposition Disposition (needs filled in before D/C Order can be placed): Home, Self Care
[2022-09-25 14:45] VITALS: BP 147/88; PULSE 62; RESP 18; TEMP 36.5; O2SAT 100
== END 2022-09-25 15:53 | disposition home or self-care (01) | DRG 483 ==
LOC: SDC 17:02 → MS3 17:51
PROVIDERS: Anesthesiology; Admitting Provider Student in an Organized Health Care Education/Training Program; PCP Internal Medicine; Referring Provider Student in an Organized Health Care Education/Training Program; Visit Provider Student in an Organized Health Care Education/Training Program
PROC: 0RRK00Z Replacement of Left Shoulder Joint with Reverse Ball and Socket Synthetic Substitute, Open Approach (ICD-10-PCS; CPT 23472; principal; 2022-09-23 12:00)
DX: T84.59XA Infection and inflammatory reaction due to other internal joint prosthesis, initial encounter (principal); L02.414 Cutaneous abscess of left upper limb; T84.84XA Pain due to internal orthopedic prosthetic devices, implants and grafts, initial encounter; I10 Essential (primary) hypertension; M19.012 Primary osteoarthritis, left shoulder; Y83.1 Surgical operation with implant of artificial internal device as the cause of abnormal reaction of the patient, or of later complication, without mention of misadventure at the time of the procedure; Z79.1 Long term (current) use of non-steroidal anti-inflammatories (NSAID); Z96.612 Presence of left artificial shoulder joint; Z96.653 Presence of artificial knee joint, bilateral; Z87.891 Personal history of nicotine dependence
CPT/HCPCS: 36415; 36569; 71046; 80048; 80202; 82962; 83735; 85025; 85027; 85652; 86140; 87070; 87075; 87077; 87081; 87176; 87184; 87186; 87205; 93005; 94668; 97110; 97166; 97535; C1776; J7030; J7050; J7120; A4216; J0696; J2405; J3475

== ENCOUNTER → 2022-10-08 | Outpatient (CLI) | payer OTHER, SELFPAY ==
[2022-10-08 15:25] LABS: Erythrocyte Sedimentation Rate 12 mm/hr (0-20)
[2022-10-08 15:45] LABS: ALB/GLOB Ratio 0.9 RATIO (0.9-2.4); AST(SGOT) 23 U/L (15-37); Alanine Aminotransfer ALT/SGPT 22 U/L (16-61); Albumin, Serum 3.5 g/dL (3.2-5.0); Alkaline Phosphatase 103 U/L (45-117); Anion Gap 7 (5-15); BUN 13 mg/dL (7-18); BUN/Creat Ratio 9.9 RATIO (10-20); Calcium,Total 9.2 mg/dL (8.5-10.1); Chloride 108 mmol/L (98-107); Creatinine, Serum 1.31 mg/dL (0.70-1.30); EST Glomerular Filtration Rate 58 mL/min (>60); Est Glom Filt Rate - Afr Amer 71 mL/min (>60); Glucose 83 mg/dL (74-106); Potassium 3.6 mmol/L (3.5-5.1); Protein, Total 7.5 g/dL (6.4-8.2); Sodium Level 143 mmol/L (136-145)
[2022-10-08 15:57] LABS: Hematocrit 36.4 % (40-54); Mean Corp Hgb Conc 30.2 g/dL (32-36); Mean Corpuscular Hgb 27.4 pg (27.0-32.0); Mean Corpuscular Volume 90.8 fL (80-94); Mean Platelet Vol. 8.9 fl (6.2-12.0); Platelet Count 450 K/mm3 (150-450); RBC Distribution Width CV 13.1 % (11.6-14.6); RBC Distribution Width SD 42.8 fl (35.1-43.9); Red Blood Count 4.01 M/mm3 (4.6-6.2); White Blood Count 6.3 K/mm3 (4.4-11.0)
== END | disposition home or self-care (01) ==
LOC: LAB 13:59
PROVIDERS: PCP Internal Medicine; Visit Provider Internal Medicine Infectious Disease
DX: R19.7 Diarrhea, unspecified (principal); T84.50XA Infection and inflammatory reaction due to unspecified internal joint prosthesis, initial encounter
CPT/HCPCS: 36415; 80053; 85027; 85652

== ENCOUNTER → 2022-10-10 | Outpatient (CLI) | payer OTHER, SELFPAY | END | disposition home or self-care (01) | LOC: MTLAB 09:36 | PROVIDERS: PCP Internal Medicine; Referring Provider Internal Medicine Infectious Disease; Visit Provider Internal Medicine Infectious Disease | DX: T84.50XA Infection and inflammatory reaction due to unspecified internal joint prosthesis, initial encounter (principal); X58.XXXA Exposure to other specified factors, initial encounter | CPT/HCPCS: 87493 ==

== ENCOUNTER 2023-01-04 05:35 | Emergency (ER) | payer OTHER, SELFPAY ==
[2023-01-04 05:37] VITALS: BP 136/69; PULSE 73; RESP 18; TEMP 36.3; O2SAT 99; BMI 25.6
[2023-01-04 05:40] VITALS: BP 136/69; PULSE 73; RESP 18; TEMP 36.3; O2SAT 99
--- NOTE | 2023-01-04 06:02 | EDS_ITS ---
HPI History of Present Illness Chief Complaint: Shortness of Breath Informant: patient and spouse/S.O. Narrative Narrative: Patient is a 62-year-old male who underwent left shoulder replacement approximately 3 months ago and then developed a secondary infection. He has been on ciprofloxacin and cephalexin for the past 2 months approximately. He states over the past week to 10 days he has noticed intermittent bouts of shortness of breath with wheezing. He admits to a remote history of smoking roughly 40 years ago but denies any history of COPD or need for supplemental oxygen. He also denies any history of asthma. He states he feels like symptoms have been slowly worsening over the last few days and has concerned that this could be potential cardiac or pneumonia and secondary to this comes in for evaluation [facility] Medical History Arthritis Back pain Former smoker History of diverticulitis History of edema Hoarseness Hx of developmental dysplasia of the hip Leg cramps Open wound Wears glasses Home Medications acetaminophen 325 mg tablet (Tylenol) 650 mg PO Q4H PRN Pain 11/28/21 [History Last Taken Unknown] tramadol 50 mg tablet 50 mg PO QHS 03/24/22 [History Last Taken 09/22/22] cholecalciferol (vitamin D3) 25 mcg (1,000 unit) capsule (Vitamin D3) 25 mcg PO DAILY 04/17/22 [History Last Taken 09/18/22] cyanocobalamin (vitamin B-12) 50 mcg tablet (Vitamin B-12) 50 mcg PO DAILY 04/17/22 [History Last Taken 09/18/22] ciprofloxacin HCl 500 mg tablet 750 mg (1.5 x 500 mg) PO BID 40 days #120 tabs 09/25/22 [Rx Last Taken Unknown] albuterol sulfate 90 mcg/actuation aerosol inhaler (Ventolin HFA) 1 - 2 puff inhalation Q4H PRN PRN shortness of breath or wheezing #1 device 01/04/23 [Rx Last Taken Unknown] cephalexin 500 mg capsule mg 01/04/23 [History Last Taken 01/04/23] meloxicam 7.5 mg tablet mg 01/04/23 [History Last Taken 01/04/23] Allergy/AdvReac Type Severity Reaction Status Date / Time No Known Allergies Allergy Verified 08/27/23 05:37 Surgical History (Updated 09/19/22 @ 13:23 by Jackie Catalan) History of carpal tunnel surgery of left wrist Hx of colonoscopy Hx of shoulder replacement Hx of total knee arthroplasty Social History Smoking Status: Former smoker ROS ROS ED Constitutional Constitutional ED: Denies chills or fever(s) ENT ENT ED: Denies rhinorrhea or sore throat Cardiovascular Cardiovascular: Denies chest pain, palpitations or racing heartbeat Respiratory/Chest Respiratory/Chest: Reports dyspnea; Denies cough Gastrointestinal Gastrointestinal: Denies abdominal pain, diarrhea, nausea or vomiting Genitourinary Genitourinary ED: Denies dysuria Musculoskeletal Musculoskeletal: Denies myalgias Integumentary Denies rash Neurologic Neurologic: Denies headache(s) Hematologic/Lymphatic Hematologic/Lymphatic: Denies easy bleeding or easy bruising EXAM Physical Exam Const Vital Signs: 01/04/23 05:37 01/04/23 05:40 01/04/23 05:40 Temperature 97.3 F L 97.3 F L Temperature Source Temporal Temporal Pulse Rate 73 73 Respiratory Rate 18 18 Respiratory Effort Normal Blood Pressure 136/69 H 136/69 H Blood Pressure Mean 91 91 Pulse Ox 99 99 Oxygen Delivery Method Room Air Room Air Room Air Positive well nourished and well developed General Appearance ED: well developed; Negative for pallor HEENT Reports moist mucous membranes HEENT Narrative: No tongue or lip swelling no oral lesions no airway edema or compromise Eyes PERRL and EOMs intact bilaterally General Eye ED: Negative for pale conjunctiva Neck supple and no JVD Chest Wall palpation of chest normal Chest Narrative: No bony deformity or crepitance noted Resp normal respiratory effort and clear to auscultation bilaterally Resp Narrative: No nasal flaring retractions tachypnea or accessory muscle use No dyspnea with speech Cardio regular rate and regular rhythm Rate: other Other Details: Radial and carotid pulses are equal and symmetric Extremity normal to inspection Extremity Narrative: Patient has postoperative surgical changes to the left shoulder without obvious secondary infection changes Bilateral lower extremities are neurovascularly intact. No asymmetric edema no pitting edema negative Homans' sign bilaterally. Neuro oriented x3 and CN's II-XII intact bilaterally Sensorium / Orientation: alert Psych mental status grossly normal Skin no rashes or lesions noted General Skin Exam: Negative for pallor MDM MDM MDM Narrative Medical decision making narrative: Patient presented to the ER afebrile and satting 98 to 100% on room air. He reported having intermittent bouts of shortness of breath for the past week. He states that he can do physical activities such as mowing the yard without any symptoms but then would be resting in the evening and then develop shortness of breath and wheeze. Differential diagnosis includes bronchospasm versus pneumonia versus pneumothorax versus pulmonary embolus because of his recent surgery versus electrolyte derangement acute blood loss anemia or acute coronary syndrome. EKG showed normal sinus rhythm without ischemic or dysrhythmia changes. Troponin correlates this as it is normal at a value of 6. Lab work shows no significant abnormalities as H&H is stable electrolytes are within normal limits. The patient's D-dimer is 0.64 or 640 and based on his age of [age] years old the upper limit is 640 and therefore this is at the upper limit but not above and considered negative. the patient's home medications were reviewed and he is on both meloxicam and ciprofloxacin. Both these medications carry approximate 1% risk for bronchospasm. There is possibility that his symptoms could be related to medication. However at this time he is not showing cardiac event congestive heart failure pneumonia pneumothorax or PE and therefore does not need to stay in the hospital. He will be prescribed an albuterol inhaler to take when symptoms flare and he will discuss potentially medication changes to see if this helps reduce symptoms with his doctor on an outpatient basis. History & Record Review Discussion w/independent historian: Patient and Significant other Lab Data Attestation: I reviewed the patient's lab results. Labs: Laboratory Results - last 24 hr 01/04/23 06:05 WBC 9.9 RBC 4.48 L Hgb 12.4 L Hct 38.6 L MCV 86.2 MCH 27.7 MCHC 32.1 RDW Std Deviation 44.9 H RDW Coeff of Brianne 14.2 Plt Count 355 MPV 8.7 Immature Gran % (Auto) 0.500 Neut % (Auto) 74.3 H Lymph % (Auto) 13.1 L Bulloch % (Auto) 8.8 Eos % (Auto) 2.9 Baso % (Auto) 0.4 Absolute Neuts (auto) 7.3 Absolute Lymphs (auto) 1.29 Nucleated RBC % 0 D-Dimer Quant (PE/DVT) 0.64 H* Sodium 141 Potassium 3.8 Chloride 109 H Carbon Dioxide 25.0 Anion Gap 7 BUN 15 Creatinine 1.17 Estim Creat Clear Calc 76.23 Est GFR (MDRD) Af Amer 81 Est GFR (MDRD) Non-Af 67 BUN/Creatinine Ratio 12.8 Glucose 96 Calcium 9.0 Magnesium 2.1 Troponin I High Sens 6 B-Natriuretic Peptide 31.8 Radiography Diagnostic Testin view chest x-ray as interpreted by the emergency medicine physician reveals atelectasis and in the bilateral lower lobes without acute infiltrate pneumothorax pleural effusion or widening of the mediastinum Discharge Plan Triage Chief Complaint: Shortness of Breath ED Provider: Rishabh Presley Dx/Rx/DC Orders Clinical Impression: Bronchospasm, Dyspnea Instructions: ED Bronchospasm (Adult), ED Dyspnea Prescriptions: New albuterol sulfate [Ventolin HFA] 90 mcg/actuation HFA aerosol inhaler 1 - 2 puff inhalation Q4H PRN PRN (Reason: shortness of breath or wheezing) Qty: 1 2RF No Action acetaminophen [Tylenol] 325 mg Tablet 650 mg PO Q4H PRN (Reason: Pain) tramadol 50 mg tablet 50 mg PO QHS Patient Comments: TAKE 1 TO 2 TABLETS BY MOUTH EVERY 6 HOURS NEEDED FOR PAIN Vitamin B-12 50 mcg Tablet 50 mcg PO DAILY cholecalciferol (vitamin D3) [Vitamin D3] 25 mcg (1,000 unit) Capsule 25 mcg PO DAILY ciprofloxacin HCl 500 mg Tablet 750 mg PO BID 40 Days Qty: 120 0RF meloxicam 7.5 mg tablet Patient Comments: TAKE 1 TABLET BY MOUTH TWICE DAILY WITH FOOD cephalexin 500 mg capsule Patient Comments: TAKE 1 CAPSULE BY MOUTH TWICE DAILY Primary Care Provider: Curtis Orta Referrals: Curtis Orta MD [Primary Care Provider] - Activity Restrictions/Additional Instructions: Your work-up today shows no signs of cardiac event blood clots or infection as a cause of your shortness of breath symptoms. Your history indicates that you are having intermittent bronchospasms. Secondary to this take the albuterol inhaler as directed when you feel symptoms occur. There is a possibility that the ciprofloxacin and/or meloxicam is contributing to your symptoms as chart review reveals each medication can produce bronchospasm and approximate 1% of individuals. Therefore talk your doctor about potentially stopping or changing these medications to see if this helps control symptoms. Please return to the ER should you have any further concerns. Disposition Disposition: Home, Self Care
--- NOTE | 2023-01-04 06:07 | EKG12_ITS ---
Test Reason : SOB Blood Pressure : / mmHG Vent. Rate : 061 BPM Atrial Rate : 061 BPM P-R Int : 158 ms QRS Dur : 096 ms QT Int : 456 ms P-R-T Axes : 044 022 055 degrees QTc Int : 459 ms Normal sinus rhythm Normal ECG Confirmed by KELLY CONWAY, KOBY ([id number]), editor greeting card RAMIREZ RAMIREZ ([id number]) on 01/29/2023 2:05:56 PM Referred By: Confirmed By:THERESA MENDOZA MD
[2023-01-04 06:13] LABS: Absolute Lymphocyte Count 1.29 X10^3/uL (0.83-4.51); Absolute Neutrophil Count 7.3 X10^3/uL (2.0-7.7); Basophil# 0.04 X10^3/uL; Basophil% 0.4 % (0-1); Eosinophil# 0.29 X10^3/uL; Eosinophils% 2.9 % (0-5); Hematocrit 38.6 % (40-54); Hemoglobin 12.4 g/dL (13.0-16.5); Lymphocyte # 1.29 X10^3/ul (0.83-4.51); Lymphocyte % 13.1 % (19-41); Mean Corp Hgb Conc 32.1 g/dL (32-36); Mean Corpuscular Hgb 27.7 pg (27.0-32.0); Mean Corpuscular Volume 86.2 fL (80-94); Mean Platelet Vol. 8.7 fl (6.2-12.0); Monocyte# 0.87 X10^3/uL; Monocyte% 8.8 % (0-10); NRBC Flagged by Analyzer 0 % (0-5); Neutrophil # 7.31 X10^3/uL (2.7-7.7); Neutrophil % 74.3 % (47-70); Platelet Count 355 K/mm3 (150-450); RBC Distribution Width CV 14.2 % (11.6-14.6); RBC Distribution Width SD 44.9 fl (35.1-43.9); Red Blood Count 4.48 M/mm3 (4.6-6.2); White Blood Count 9.9 K/mm3 (4.4-11.0)
--- NOTE | 2023-01-04 06:20 | RAD_ITS ---
INDICATION: dyspnea EXAMINATION/TECHNIQUE: X-RAY - XR Chest 2 Views COMPARISON: 09/19/2022. FINDINGS: LINES/DEVICES: None. LUNGS: No consolidation or evidence of an effusion. No evidence of edema or a pneumothorax. MEDIASTINUM AND CARDIOVASCULAR STRUCTURES: Cardiac silhouette is normal in size and contour. Mediastinum is unremarkable. BONES AND SOFT TISSUES: No acute abnormality. RAD/Chest PA and Lateral IMPRESSION: No evidence of acute cardiopulmonary disease. Electronically Signed: Tyree Faith DO at 7:38 EDT ,
[2023-01-04 06:31] LABS: Anion Gap 7 (5-15); BUN 15 mg/dL (7-18); BUN/Creat Ratio 12.8 RATIO (10-20); Chloride 109 mmol/L (98-107); Creatinine, Serum 1.17 mg/dL (0.70-1.30); EST Glomerular Filtration Rate 67 mL/min (>60); Est Glom Filt Rate - Afr Amer 81 mL/min (>60); Estimated Creatinine Clearance 76.23 ml/min; Glucose 96 mg/dL (74-106); Magnesium 2.1 mg/dL (1.6-2.6); Potassium 3.8 mmol/L (3.5-5.1); Sodium Level 141 mmol/L (136-145); Troponin-I HS 6 pg/mL (3.0-78.0)
[2023-01-04 06:43] LABS: D-Dimer Quantitative (DVT/PE) 0.64 FEU/ug/m (0.27-0.49)
[2023-01-04 07:00] LABS: BNP,B-Type NATRIURETIC PEPTIDE 31.8 pg/mL (0-100)
== END 2023-01-04 07:23 | disposition home or self-care (01) ==
PROVIDERS: Emergency Provider Emergency Medicine; PCP Internal Medicine; Visit Provider Emergency Medicine
DX: R06.00 Dyspnea, unspecified (principal); Z87.891 Personal history of nicotine dependence; Z96.612 Presence of left artificial shoulder joint; J98.01 Acute bronchospasm
CPT/HCPCS: 71046; 80048; 83735; 83880; 84484; 85025; 85379; 93005; 99283

== ENCOUNTER → 2023-04-01 | Outpatient (CLI) | payer MEDICARE, SELFPAY ==
[2023-04-01 09:35] LABS: Erythrocyte Sedimentation Rate 10 mm/hr (0-20)
[2023-04-01 09:37] LABS: Hematocrit 40.2 % (40-54); Mean Corp Hgb Conc 32.3 g/dL (32-36); Mean Corpuscular Hgb 29.1 pg (27.0-32.0); Mean Corpuscular Volume 89.9 fL (80-94); Mean Platelet Vol. 9.1 fl (6.2-12.0); Platelet Count 394 K/mm3 (150-450); RBC Distribution Width CV 12.9 % (11.6-14.6); RBC Distribution Width SD 42.6 fl (35.1-43.9); Red Blood Count 4.47 M/mm3 (4.6-6.2); White Blood Count 4.6 K/mm3 (4.4-11.0)
[2023-04-01 09:59] LABS: AST(SGOT) 32 U/L (15-37); Alanine Aminotransfer ALT/SGPT 40 U/L (16-61); Albumin, Serum 3.8 g/dL (3.2-5.0); Alkaline Phosphatase 92 U/L (45-117); Anion Gap 3 (5-15); BUN 11 mg/dL (7-18); BUN/Creat Ratio 9.8 RATIO (10-20); Calcium,Total 9.1 mg/dL (8.5-10.1); Chloride 107 mmol/L (98-107); Creatinine, Serum 1.12 mg/dL (0.70-1.30); EST Glomerular Filtration Rate 70 mL/min (>60); Est Glom Filt Rate - Afr Amer 85 mL/min (>60); Globulin 3.5 g/dL (2.2-4.2); Glucose 100 mg/dL (74-106); Protein, Total 7.3 g/dL (6.4-8.2); Sodium Level 139 mmol/L (136-145)
== END | disposition home or self-care (01) ==
LOC: PSN 08:55
PROVIDERS: PCP Internal Medicine; Visit Provider Internal Medicine Infectious Disease
DX: T84.50XA Infection and inflammatory reaction due to unspecified internal joint prosthesis, initial encounter (principal); X58.XXXA Exposure to other specified factors, initial encounter
CPT/HCPCS: 36415; 80048; 80076; 85027; 85652; 93005

== ENCOUNTER → 2023-06-25 | Outpatient (CLI) | payer MEDICARE, SELFPAY ==
[2023-06-25 12:47] LABS: Absolute Lymphocyte Count 1.42 X10^3/uL (0.83-4.51); Absolute Neutrophil Count 3.8 X10^3/uL (2.0-7.7); Basophil# 0.02 X10^3/uL; Basophil% 0.3 % (0-1); Eosinophil# 0.14 X10^3/uL; Eosinophils% 2.4 % (0-5); Hematocrit 41.7 % (40-54); Hemoglobin 13.6 g/dL (13.0-16.5); Lymphocyte # 1.42 X10^3/ul (0.83-4.51); Lymphocyte % 23.9 % (19-41); Mean Corp Hgb Conc 32.6 g/dL (32-36); Mean Corpuscular Hgb 29.1 pg (27.0-32.0); Mean Corpuscular Volume 89.1 fL (80-94); Mean Platelet Vol. 9.1 fl (6.2-12.0); Monocyte# 0.54 X10^3/uL; Monocyte% 9.1 % (0-10); NRBC Flagged by Analyzer 0 % (0-5); Neutrophil # 3.79 X10^3/uL (2.7-7.7); Platelet Count 415 K/mm3 (150-450); RBC Distribution Width CV 12.9 % (11.6-14.6); Red Blood Count 4.68 M/mm3 (4.6-6.2); White Blood Count 5.9 K/mm3 (4.4-11.0)
[2023-06-25 13:38] LABS: AST(SGOT) 32 U/L (15-37); Alanine Aminotransfer ALT/SGPT 33 U/L (16-61); Albumin, Serum 4.1 g/dL (3.2-5.0); Alkaline Phosphatase 94 U/L (45-117); Anion Gap 5 (5-15); BUN 14 mg/dL (7-18); BUN/Creat Ratio 12.6 RATIO (10-20); Bilirubin, Direct 0.14 mg/dL (0.00-0.30); Calcium,Total 9.2 mg/dL (8.5-10.1); Chloride 109 mmol/L (98-107); Creatinine, Serum 1.11 mg/dL (0.70-1.30); EST Glomerular Filtration Rate 71 mL/min (>60); Est Glom Filt Rate - Afr Amer 85 mL/min (>60); Globulin 3.7 g/dL (2.2-4.2); Glucose 89 mg/dL (74-106); Potassium 3.9 mmol/L (3.5-5.1); Protein, Total 7.8 g/dL (6.4-8.2); Sodium Level 141 mmol/L (136-145)
== END | disposition home or self-care (01) ==
LOC: LAB 11:03
PROVIDERS: PCP Internal Medicine; Referring Provider Internal Medicine Infectious Disease; Visit Provider Internal Medicine Infectious Disease
DX: T84.59XA Infection and inflammatory reaction due to other internal joint prosthesis, initial encounter (principal); X58.XXXA Exposure to other specified factors, initial encounter
CPT/HCPCS: 36415; 80048; 80076; 85025